=== PATIENT | female | born 1955 | race Caucasian/White ===

== ENCOUNTER → 2016-10-22 | Outpatient (CLI) | payer MEDICARE ==
[~2016-10-22] MED LIST: HYDR-3516 PO; HYDR-3580 PO; OMEP40CA2 PO; OXYC1TAB63 PO; ROPI0.5T PO; TRAZ100T4 PO; WARF-18 PO
[2016-10-22 15:03] LABS: AUTOMATED NEUTROPHIL # 4.4 TH/MM3 (1.8-7.7); BASOPHIL % 0.7 % (0.0-2.0); EOSINOPHIL # 0.3 TH/MM3 (0-0.4); EOSINOPHIL % 4.3 % (0.0-4.0); HEMATOCRIT 42.5 % (35.0-46.0); HEMO FLAGS DIFF FINAL; LYMPH % 22.7 % (9.0-44.0); LYMPHOCYTE # 1.6 TH/MM3 (1.0-4.8); MEAN CELL VOLUME 89.6 FL (80.0-100.0); MEAN CORPUSCULAR HEMOGLOBIN 29.4 PG (27.0-34.0); MEAN CORPUSCULAR HGB CONC 32.8 % (32.0-36.0); NEUT % 62.3 % (16.0-70.0); PLATELET COUNT 330 TH/MM3 (150-450); RED BLOOD COUNT 4.74 MIL/MM3 (4.00-5.30); RED CELL DISTRIBUTION WIDTH 15.4 % (11.6-17.2)
[2016-10-22 15:11] LABS: BLOOD, URINE NEG (NEG); COMMENT (UR) CULT NOT INDICATED; GLUCOSE,URINE NEG (NEG); KETONE, URINE NEG (NEG); NITRITE,URINE NEG (NEG); PH, URINE 6.5 (5.0-8.5); SQUAMOUS EPITHELIAL CELL URINE <1 /hpf (0-5); URINE COLOR LIGHT-YELLOW (YELLW/STRAW)
[2016-10-22 15:28] LABS: APTT (PATIENT) 32.2 SEC (24.3-30.1); INTERNATIONAL NORMALIZED RATIO 1.6 RATIO; PROTHROMBIN TIME - PATIENT 18.1 SEC (9.8-11.6)
[2016-10-22 15:37] LABS: ALT (GPT) 21 U/L (10-53); ANION GAP 5 MEQ/L (5-15); AST (GOT) 16 U/L (15-37); BICARBONATE 32.5 MEQ/L (21.0-32.0); BLOOD UREA NITROGEN 8 MG/DL (7-18); CHLORIDE 103 MEQ/L (98-107); GLOMERULAR FILTRATION RATE 55 ML/MIN (>89); GLUCOSE,FASTING 116 MG/DL (74-99); POTASSIUM 3.6 MEQ/L (3.5-5.1); SODIUM (NA) 140 MEQ/L (136-145)
[2016-10-22 15:39] LABS: ALKALINE PHOSPHATASE 128 U/L (45-117); TOTAL BILIRUBIN ADULT 0.5 MG/DL (0.2-1.0)
== END ==
LOC: CLAB 14:03
PROVIDERS: ATTEND Family Medicine
DX: Z01.89 Encounter for other specified special examinations (principal); I63.9 Cerebral infarction, unspecified; Z79.01 Long term (current) use of anticoagulants
CPT/HCPCS: 36415; 80053; 81001; 85025; 85610; 85730; 86850; 86900; 86901

== ENCOUNTER 2016-11-04 13:38 | Inpatient (IN) | payer MEDICARE ==
[~2016-11-04] VITALS: Ht 162.6 cm; Wt 84.6 kg
[2016-11-20] MEDS ORDERED: WARF-18 PO (11:40)
[2016-11-20] MEDS ORDERED: OMEP40CA2 PO (11:40)
[2016-11-20] MEDS ORDERED: TRAZ100T4 PO (11:40)
[2016-11-20] MEDS ORDERED: HYDR-3580 PO (11:40)
[2016-11-20] MEDS ORDERED: ROPI0.5T PO (11:40)
[2016-11-20 11:44] VITALS: BP 119/81; PULSE 66; RESP 18; TEMP 98.2; O2SAT 98
[2016-11-20] MEDS ORDERED: LACTATED RINGER'S 1000 ML IV SCH (11:45)
[2016-11-20] MEDS ORDERED: SODIUM CHLORID 0.9% 500 ML IV SCH (11:45)
[2016-11-20] MEDS ORDERED: METOPROLOL TARTRATE 25 MG TAB PO PRN (11:45)
[2016-11-20] MEDS ORDERED: INSULIN HUMAN REGULAR 1,000 UNITS/10 ML VIAL SQ PRN (11:45)
[2016-11-20] MEDS ORDERED: NEOSTIGMINE 3 MG/3 ML SYR IV ONE (12:00)
[2016-11-20] MEDS ORDERED: SODIUM BICARBONATE 8.4% INJ 50 MEQ/50 ML SYR IV ONE (12:00)
[2016-11-20] MEDS ORDERED: ONDANSETRON HCL 4 MG/2 ML VIAL IV PUSH ONE (12:00)
[2016-11-20] MEDS ORDERED: PROPOFOL 200 MG/20 ML AMP IV ONE (12:00)
[2016-11-20] MEDS ORDERED: SODIUM CHLORID 0.9% 500 ML INJ 500 ML IV ONE (12:00)
[2016-11-20] MEDS ORDERED: NORMOSOL R INJ 1,000 ML IV ONE (12:00)
[2016-11-20] MEDS ORDERED: PHENYLEPH/NS 1000 MCG/10 ML SYR IV ONE (12:00)
[2016-11-20] MEDS ORDERED: ePHEDrine/NS 25 MG/5 ML SYR IV ONE (12:00)
[2016-11-20] MEDS ORDERED: ACETAMINOPHEN 1000 MG/100 ML VIAL IV ONE ×2 (12:00→13:57)
[2016-11-20] MEDS ORDERED: LACTATED RINGER'S 1000 ML INJ 4,000 ML IV ONE (12:00)
[2016-11-20 12:04] LABS: INTERNATIONAL NORMALIZED RATIO 0.9 RATIO; PROTHROMBIN TIME - PATIENT 10.3 SEC (9.8-11.6)
[2016-11-20] MEDS ORDERED: ceFAZolin 2 GM PREMIX 50 ML ONE (12:14)
[2016-11-20] MEDS: POVIDONE IODINE 7.5% SCRUB 118 ML BOTTLE TOP SCH (12:30)
[2016-11-20] MEDS: ceFAZolin 2 GM PREMIX 50 ML IV SCH ×2 (12:55→13:00)
[2016-11-20] MEDS ORDERED: GENTAMICIN SULFATE 80 MG/2 ML VIAL ONE (13:13)
[2016-11-20] MEDS ORDERED: FAMOTIDINE 20 MG/2 ML VIAL ONE (13:57)
[2016-11-20] MEDS ORDERED: MIDAZOLAM HCL 2 MG/2 ML VIAL ONE ×2 (13:57→19:17)
[2016-11-20] MEDS ORDERED: THROMBIN (TOPICAL) 20,000 UNIT SPRAY KIT ONE (16:14)
[2016-11-20] MEDS ORDERED: GELFOAM SIZE 100 ONE (16:14)
[2016-11-20] MEDS ORDERED: VASOPRESSIN INJ 20 UNITS/ML VIAL ONE (16:41)
[2016-11-20] MEDS ORDERED: GELFOAM SIZE 100 TOP ONE (16:45)
[2016-11-20 17:35] LABS: BLOOD GAS BASE EXCESS -8.5 mmol/L (-2-2); BLOOD GAS CARBOXYHEMOGLOBIN 1.7 % (0-4); BLOOD GAS HCO3 17 mmol/L (22-26); BLOOD GAS METHEMOGLOBIN 0.8 % (0-2); BLOOD GAS O2 HGB SATURATION 98 % (90-100); BLOOD GAS OXYGEN CONTENT 4.9 Vol % (12.0-20.0); BLOOD GAS PCO2 41 mmHg (38-42); BLOOD GAS PO2 257 mmHg (61-120); TEMP CORR TO 98.6
[2016-11-20 17:36] LABS: CRITICAL VALUE YES; FIO2 53 %; OXYGEN DEVICE OPERATING ROOM; STAT YES
[2016-11-20 18:27] LABS: BLOOD GAS BASE EXCESS -9.2 mmol/L (-2-2); BLOOD GAS CARBOXYHEMOGLOBIN 1.2 % (0-4); BLOOD GAS HCO3 17 mmol/L (22-26); BLOOD GAS METHEMOGLOBIN 0.9 % (0-2); BLOOD GAS O2 HGB SATURATION 97 % (90-100); BLOOD GAS OXYGEN CONTENT 15.1 Vol % (12.0-20.0); BLOOD GAS PCO2 38 mmHg (38-42); BLOOD GAS PO2 225 mmHg (61-120); BLOOD GAS TOTAL HGB 10.6 G/DL (12.0-16.0); TEMP CORR TO 98.6
[2016-11-20 18:28] LABS: CRITICAL VALUE YES; FIO2 0 %; OXYGEN DEVICE OR
[2016-11-20 18:29] LABS: STAT YES
[2016-11-20] MEDS ORDERED: NOREPINEPHRINE 4 MG/4 ML AMP ONE ×2 (18:41→22:39)
[2016-11-20 18:45] LABS: AUTOMATED NEUTROPHIL # 6.9 TH/MM3 (1.8-7.7); BASOPHIL % 0.3 % (0.0-2.0); EOSINOPHIL # 0.1 TH/MM3 (0-0.4); EOSINOPHIL % 1.1 % (0.0-4.0); LYMPH % 13.6 % (9.0-44.0); LYMPHOCYTE # 1.3 TH/MM3 (1.0-4.8); MEAN CELL VOLUME 88.5 FL (80.0-100.0); MEAN CORPUSCULAR HEMOGLOBIN 29.5 PG (27.0-34.0); MEAN CORPUSCULAR HGB CONC 33.4 % (32.0-36.0); MONO % 11.3 % (0.0-8.0); NEUT % 73.7 % (16.0-70.0); PLATELET COUNT 65 TH/MM3 (150-450); RED BLOOD COUNT 3.84 MIL/MM3 (4.00-5.30); RED CELL DISTRIBUTION WIDTH 13.7 % (11.6-17.2); WHITE BLOOD COUNT 9.3 TH/MM3 (4.0-11.0)
[2016-11-20] MEDS ORDERED: FUROSEMIDE 20 MG/2 ML VIAL ONE (18:46)
[2016-11-20 18:48] VITALS: O2SAT 100
[2016-11-20 18:52] LABS: HEMO FLAGS AUTO DIFF
[2016-11-20] MEDS ORDERED: DO NOT ADM ANY ANTICOAGULANT DRUGS XX PRN (18:55)
[2016-11-20 18:58] LABS: BICARBONATE 20.2 MEQ/L (21.0-32.0); POTASSIUM 4.7 MEQ/L (3.5-5.1)
[2016-11-20] MEDS ORDERED: PROMETHAZINE HCL 25 MG TAB PO PRN (19:00)
[2016-11-20] MEDS ORDERED: SODIUM CHLORIDE 0.9% FLUSH 5 ML FLUSH IVF PRN (19:00)
[2016-11-20] MEDS ORDERED: Post-op Orders (for Pharmacy) MISC XX ONE (19:00)
[2016-11-20] MEDS ORDERED: PROPOFOL 1000 MG/100 ML INJ 100 ML ONE (19:08)
[2016-11-20 19:10] LABS: CALCIUM-PROTEIN CORRECTED 9.2 MG/DL (8.5-10.1)
[2016-11-20 19:14] LABS: APTT (PATIENT) 80.8 SEC (24.3-30.1); INTERNATIONAL NORMALIZED RATIO 1.9 RATIO; PROTHROMBIN TIME - PATIENT 21.8 SEC (9.8-11.6)
[2016-11-20] MEDS ORDERED: fentaNYL CITRATE 250 MCG/5 ML AMP ONE (19:17)
--- NOTE | 2016-11-20 19:28 | RADRPT ---
EXAM DATE/TIME: 11/20/2016 18:16 [facility] COMPARISON: No previous studies available for comparison. INDICATIONS : ORIF. MEDICAL HISTORY : None. SURGICAL HISTORY : None. ENCOUNTER: Initial ACUITY: 1 day PAIN SCORE: Non-responsive. LOCATION: Right femur. FINDINGS: Limited images have been obtained. The patient has a hip prosthesis in place. There is a fairly long femoral stem component. Cerclage wires are seen at the proximal femur. The patient also has a plat e along the lateral mid and distal aspect of the femur secured by multiple screws. This successfully reduces the midfemoral shaft fracture. There is a prosthetic component identified at the distal femu r. CONCLUSION: Surgical hardware as described above. This all appears well placed. Nigel Goodman MD on November 20, 2016 at 18:21 Board Certified Radiologist. This report was verified electronically.
[2016-11-20] MEDS ORDERED: EPINEPHrine HCL (1:10,000) 1 MG/10 ML SYRINGE ONE ×2 (19:40)
--- NOTE | 2016-11-20 19:41 | RADRPT ---
EXAM DATE/TIME: 11/20/2016 18:48 [facility] COMPARISON: No previous studies available for comparison. INDICATIONS : Central line placement and ET tube placement. MEDICAL HISTORY : None. SURGICAL HISTORY: Post hip replacement. ENCOUNTER: Initial ACUITY: 1 day PAIN SCORE: Non-responsive. LOCATION: Bilateral chest FINDINGS: The patient is intubated with the tip of the ET tube 3 cm from the cyrus. There is a right internal jugular central line in place with the tip overlying the SVC. The heart size is normal. There is in creased density at the left base. There is at least a mild to moderate left pleural effusion. The r ight lung is clear. CONCLUSION: Left lower lobe consolidation or atelectasis with an accompanying mild to moderate le ft pleural effusion. Nigel Goodman MD on November 20, 2016 at 19:31 Board Certified Radiologist. This report was verified electronically.
[2016-11-20] MEDS ORDERED: EPINEPHrine 2 MG/D5W 250 ML IV SCH ×2 (19:45)
[2016-11-20 19:49] LABS: CRENATED RBCS 1+ (NORMAL); PLATELET ESTIMATE SMEAR LOW (NORMAL); PLATELET MORPHOLOGY NORMAL (NORMAL); TEARDROP RBCS 1+ (NORMAL)
[2016-11-20 19:50] LABS: SCAN/DIFF AUTO DIFF CONFIRMED
[2016-11-20] MEDS ORDERED: MIDAZOLAM HCL 5 MG/5 ML VIAL ONE (20:29)
[2016-11-20 20:32] LABS: BLOOD GAS BASE EXCESS -9.4 mmol/L (-2-2); BLOOD GAS CARBOXYHEMOGLOBIN 1.3 % (0-4); BLOOD GAS HCO3 15 mmol/L (22-26); BLOOD GAS METHEMOGLOBIN 0.8 % (0-2); BLOOD GAS O2 HGB SATURATION 98 % (90-100); BLOOD GAS OXYGEN CONTENT 11.5 Vol % (12.0-20.0); BLOOD GAS PCO2 29 mmHg (38-42); BLOOD GAS PO2 246 mmHg (61-120); BLOOD GAS TOTAL HGB 7.9 G/DL (12.0-16.0); TEMP CORR TO 98.6
[2016-11-20 20:33] LABS: CRITICAL VALUE YES; DRAW SITE ART LINE; FIO2 50 %; OXYGEN DEVICE VENTILATOR; STAT NO; VENT SETTINGS 470/14/PEEP 5/
[2016-11-20 20:59] LABS: HEMATOCRIT 20.6 % (35.0-46.0); REVIEW FLAG FINAL
[2016-11-20] MEDS ORDERED: SODIUM CHLOR 0.9% 250 ML INJ 250 ML IV ONE ×4 (21:00→22:30)
[2016-11-20] MEDS ORDERED: SODIUM CHLORIDE 0.9% FLUSH 5 ML FLUSH IVF SCH (21:00)
[2016-11-20] MEDS ORDERED: SODIUM CHLORIDE 0.9% FLUSH 5 ML FLUSH IV FLUSH PRN (21:15)
[2016-11-20] MEDS ORDERED: TRANEXAMIC ACID INJ 1,000 MG in SODIUM CHLORIDE 0.9% INJ 100 ML IV ONE (21:15)
[2016-11-20] MEDS ORDERED: ONDANSETRON HCL 4 MG/2 ML VIAL IV PRN (21:15)
[2016-11-20] MEDS ORDERED: ACETAMINOPHEN 325 MG TAB PO PRN (21:15)
[2016-11-20] MEDS ORDERED: CHLORHEXIDINE GLUCONATE 2 % 1 PACK (2 CLOTHS) TOP PRN (21:15)
[2016-11-20] MEDS ORDERED: RESP: IPRATROPIUM 0.5 MG/2.5 ML NEB INH PRN (21:15)
[2016-11-20] MEDS ORDERED: CALCIUM CHLORIDE INJ 2 GM in DEXTROSE 5% IN WATER 100ML INJ 100 ML IV ONE ×2 (21:15)
[2016-11-20] MEDS ORDERED: MISCELLANEOUS NURSING INFORMATION XX SCH (21:15)
--- NOTE | 2016-11-20 21:20 | PD.CONS ---
[facility] Service Critical Care Medicine Consult Requested By Dr. Barreto Reason for Consult Initial consult vent management, however ultimately for resuscitation for hemorrhagic shock and coagulopathy Primary Care Physician Elin Wright M.D. History of Present Illness 61 yo WF with PMH of stroke at age 26 for which she is chronically on anticoagulation with warfarin, GERD, who presented to same day surgery for right total hip arthroplasty. Intraoperatively, the R femur fractured resulting in acute blood loss. Underwent ORIF femur and R hip arthroplasty. DIscussed with Dr. Dawn with anesthesia who reports 4-5 L of EBL and states patient was hemodynamically unstable intraoperatively. Intraoperatively, Hgb had dropped to 3. She received 5.1 L of crystalloid, 4 unit of of PRBC. Two units of FFP were ordered in PACU where she is on Epinephrine 3 mcg/min and Levophed 24 mcg/min. Critical care consult was placed for ongoing resuscitation. Patient remains intubated with 7.0 ETT. Records indicate she was intubated with a 3.0 Mac with routine airway. She is hypothermic and coagulopathic with fibrinogen 54, PTT 80, platelet 65. Hgb 6.9. Review of Systems ROS Limitations: Clinical Condition, Intubated Past Family Social History Allergies: Coded Allergies: Codeine (Verified Allergy, Severe, NAUSEA AND VOMITTING, 11/20/16) Past Medical History She reportedly had a stroke at age 26 resulting in residual right sided weakness GERD TIA in 2003 Restless leg syndrome Insomnia She has no known history of coronary disease. She had a preoperative stress test by Dr. Cleary that was negative per her . Past Surgical History Right knee arthroplasty 2006 Left NATALYA 2007 Reported Medications Warfarin 2.5 mg by mouth daily (discontinued 6 days preoperatively) Trazodone 100 mg by mouth daily at bedtime Ropinorole 0.5 mg by mouth daily at bedtime Hydrocodone 7.5/325 one tab by mouth 6 hours when necessary pain Omeprazole 40 mg by mouth daily Family History Patient has 2 sisters with COPD His denies family history of coronary artery disease Social History She has a prior history of smoking and quit 2 years ago. Her is uncertain when she started but she previously smoked a pack of cigarettes per day She drinks alcohol on rare occasion No history of illicit drug use She's been for 25 years. Her is Jeramie Calvert and he states he first to be reached at [phone] Physical Exam Vital Signs Vital Signs Date Time Temp Pulse Resp B/P Pulse Ox O2 Delivery O2 Flow Rate FiO2 11/20/16 18:48 100 50 11/20/16 11:44 98.2 66 18 119/81 98 Physical Exam Unable to obtain temp. Pulse 110, sinus tach on the monitor. BP 115/67 sats 100 % on mechanical ventilation GENERAL: Well-nourished, well-developed patient who is orotracheally intubated. Will open eyes and moves BUE to command. SKIN: cool peripherally.weakly palpable radial and pedal pulses bilaterally. HEAD: Atraumatic. Normocephalic. EYES: Pupils equal and round 4 mm reactive. ENT: No nasal bleeding or discharge. Mucous membranes pink and moist. NECK: Trachea midline. No JVD. CARDIOVASCULAR: Regular rate and rhythm, sinus tach on the monitor.. No murmurs rubs or gallops. RESPIRATORY: On SIMV tidal volume 470/rate 14/pressure support 10/P5/FiO2 50%. She is breathing 26 times a minute. Lungs are clear to auscultation bilaterally. No wheezes Rales or rhonchi. GASTROINTESTINAL: Abdomen soft, non-tender, nondistended. Sounds are present Amos catheter in place with nearly clear urine output MUSCULOSKELETAL: Extremities without clubbing, cyanosis. There is dressing in place overlying right hip with blood staining and blood staining of absorbant pads under right hip. DP pulses are palpable bilaterally NEUROLOGICAL: She opens eyes to voice. Follows commands with squeeze BUE. Laboratory Laboratory Tests Test 11/20/16 11/20/16 11/20/16 11/20/16 11:45 12:12 17:25 17:42 Prothrombin Time 10.3 Prothromb Time International 0.9 Ratio Blood Type O POSITIVE O POSITIVE Antibody Screen NEGATIVE Crossmatch Leukocyte-Reduced Leukocyte-Reduced Leukocyte-Reduced Red Blood Red Blood Red Blood Cells Cells Cells Blood Bank Comment Blood Gas Puncture Site DRAWN IN OR Blood Gas Patient Temperature 98.6 Blood Gas HCO3 17 Blood Gas Base Excess -8.5 Blood Gas Oxygen Saturation 98 Arterial Blood pH 7.25 Arterial Blood Partial 41 Pressure CO2 Arterial Blood Partial 257 Pressure O2 Arterial Blood Oxygen Content 4.9 Arterial Blood 1.7 Carboxyhemoglobin Arterial Blood Methemoglobin 0.8 Blood Gas Hemoglobin 3.0 Oxygen Delivery Device OPERATING ROOM Blood Gas Inspired Oxygen 53 Test 11/20/16 11/20/16 11/20/16 11/20/16 18:05 18:18 19:43 20:22 White Blood Count 9.3 Red Blood Count 3.84 Hemoglobin 11.3 Hematocrit 34.0 Mean Corpuscular Volume 88.5 Mean Corpuscular Hemoglobin 29.5 Mean Corpuscular Hemoglobin 33.4 Concent Red Cell Distribution Width 13.7 Platelet Count 65 Mean Platelet Volume 8.6 Neutrophils (%) (Auto) 73.7 Lymphocytes (%) (Auto) 13.6 Monocytes (%) (Auto) 11.3 Eosinophils (%) (Auto) 1.1 Basophils (%) (Auto) 0.3 Neutrophils # (Auto) 6.9 Lymphocytes # (Auto) 1.3 Monocytes # (Auto) 1.1 Eosinophils # (Auto) 0.1 Basophils # (Auto) 0.0 CBC Comment AUTO DIFF Differential Comment AUTO DIFF CONFIRMED Platelet Estimate LOW Platelet Morphology Comment NORMAL Tear Drop Cells 1+ Crenated Cell 1+ Prothrombin Time 21.8 Prothromb Time International 1.9 Ratio Activated Partial 80.8 Thromboplast Time Fibrinogen 54 D-Dimer Quantitative (PE/DVT) 11.98 Sodium Level 141 Potassium Level 4.7 Chloride Level 104 Carbon Dioxide Level 20.2 Anion Gap 17 Blood Urea Nitrogen 7 Creatinine 0.92 Estimat Glomerular Filtration 62 Rate Random Glucose 310 Calcium Level 6.1 Protein Corrected Calcium 9.2 Total Protein 1.8 Blood Gas Puncture Site DRAWN IN OR ART LINE Blood Gas Patient Temperature 98.6 98.6 Blood Gas HCO3 17 15 Blood Gas Base Excess -9.2 -9.4 Blood Gas Oxygen Saturation 97 98 Arterial Blood pH 7.26 7.34 Arterial Blood Partial 38 29 Pressure CO2 Arterial Blood Partial 225 246 Pressure O2 Arterial Blood Oxygen Content 15.1 11.5 Arterial Blood 1.2 1.3 Carboxyhemoglobin Arterial Blood Methemoglobin 0.9 0.8 Blood Gas Hemoglobin 10.6 7.9 Oxygen Delivery Device OR VENTILATOR Blood Gas Inspired Oxygen 0 50 Blood Bank Comment Blood Gas Ventilator Setting 470/14/PEEP 5/ Result Diagram: 11/20/16180411/20/161804 Assessment and Plan Assessment and Plan NEURO: History of stroke with residual R sided weakness Insomnia Restless leg syndrome Fentanyl for analgosedation Target RASS -2 Neurovascular checks RLE q 1 hour. Hold trazodone 100 mg by mouth daily. Hold ropinirole 0.5 mg by mouth daily RESP: Acute respiratory failure History of tobacco abuse, no longer active smoker. Ventilator bundle Adjust to ACV TV 470/rate 24/P5/FiO60% to help compensate for metabolic acidemia CV: Hemorrhagic shock Right radial art line in place. Hemodynamic monitoring via Ty Trac is consistent with hypovolemic/hemorrhagic shock with CI 2.7 SVV 43 SVI 23. Levophed to maintain mean arterial pressure greater than 65. We'll attempt to wean off epinephrine as tolerated; she is responding to blood product resuscitation. Received 5 L crystalloid in OR and 2 L in PACU. Correct coagulopathy and acute blood loss anemia with product resuscitation as per below. Serial lactic acid, monitor UOP, monitor base deficit as markers of resuscitation. GI: GERD OGT place LIWS. NPO FEN/RENAL: Hypocalcemia Monitor intake and output hourly. Monitor electrolytes and replace as indicated. Will need aggressive calcium replacement as resuscitation of blood products is ongoing. ID: Monitor for evidence of infection Perioperative cefazolin. HEME: Acute DIC secondary to acute blood loss and consumption. Acute blood loss anemia Chronic anticoagulation with Coumadin (discontinued 6 days preoperatively) Serial monitoring of CBC, coags, fibrinogen. Received 4 units PRBC in OR. 2 units FFP in PACU Stat transfusion 3 units PRBC, 2 units cryo, 2 units platelet and additional 2 units FFP (for total of 4 units) for hemostatic resuscitation. TXA 1 gram x1 Calcium chloride 2 gram IV via CVL. External rewarming to address hypothermia. Followup hgb was 6.1 at 01:30 but coagulopathy corrected, bleeding clinically slowed, patient rewarmed, off pressors. Transfused additional 3 units PRBC and gave Lasix 20 mg IV. Good UOP. Compartments are not tense on reexamination, pedal pulses palpable. ENDO: Acute hyperglycemia Monitor bedside glucose and initiate insulin drip algorithm #1 ORTHO: R hip arthroplasty and ORIF R femur 11/20/16 Dr. Barreto will follow. Neurovascular check q 1 hour. PROPH: No further pharmacologic DVT prophylaxis at this time due to profound coagulopathy and hemorrhagic shock. Protonix 40 mg IV daily for stress ulcer prophylaxis ACCESS: Right IJ central venous line placed in OR 11/20 #1, right radial art line placed in OR 11/20 #1 Discussed with [employer]TIVE PH[employer] EDUCATION TE[employer]ER. Dr. Mary Lou updated per RN. Discussed with Dr. Dawn. CCT 90 minutes exclusive of separately billable procedures. Josselin Priest MD Nov 20, 2016 21:20
[2016-11-20] MEDS ORDERED: SODIUM PHOSPHATE INJ 30 MMOL in SODIUM CHLOR 0.9% 250 ML INJ 240 ML IV PRN (21:30)
[2016-11-20] MEDS ORDERED: POTASSIUM CHLOR 20 MEQ PREMIX 100 ML IV PRN ×2 (21:30)
[2016-11-20] MEDS ORDERED: MAGNESIUM SULFATE INJ 4 GM in SODIUM CHLORIDE 0.9% INJ 92 ML IV PRN (21:30)
[2016-11-20] MEDS ORDERED: POTASSIUM PHOSPHATE INJ 30 MMOL in SODIUM CHLOR 0.9% 250 ML INJ 250 ML IV PRN (21:30)
[2016-11-20] MEDS ORDERED: POTASSIUM CHLOR 40 MEQ PREMIX 100 ML IV PRN ×2 (21:30)
[2016-11-20] MEDS ORDERED: POTASSIUM CL 40 MEQ/30 ML LIQ UDC PO/TUBE PRN ×2 (21:30)
[2016-11-20] MEDS ORDERED: POTASSIUM PHOSPHATE MONOBASIC 500 MG TAB PO PRN (21:30)
[2016-11-20] MEDS ORDERED: MAGNESIUM OXIDE 400 MG TAB PO PRN (21:30)
[2016-11-20] MEDS ORDERED: MAGNESIUM SULFATE INJ 2 GM in SODIUM CHLORIDE 0.9% INJ 96 ML IV PRN (21:30)
[2016-11-20] MEDS ORDERED: POTASSIUM PHOSPHATE MONOBASIC 500 MG TAB PO/TUBE PRN (21:30)
[2016-11-20] MEDS: fentaNYL DRIP 250 ML IV SCH (22:00)
[2016-11-20 22:03] LABS: MAGNESIUM 1.4 MG/DL (1.5-2.5)
[2016-11-20 22:05] LABS: BLOOD GAS BASE EXCESS -10.5 mmol/L (-2-2); BLOOD GAS CARBOXYHEMOGLOBIN 1.5 % (0-4); BLOOD GAS HCO3 15 mmol/L (22-26); BLOOD GAS METHEMOGLOBIN 1.3 % (0-2); BLOOD GAS O2 HGB SATURATION 97 % (90-100); BLOOD GAS OXYGEN CONTENT 8.4 Vol % (12.0-20.0); BLOOD GAS PCO2 31 mmHg (38-42); BLOOD GAS PO2 301 mmHg (61-120); BLOOD GAS TOTAL HGB 5.6 G/DL (12.0-16.0); CRITICAL VALUE YES; DRAW SITE ART LINE; FIO2 60 %; OXYGEN DEVICE VENTILATOR; TEMP CORR TO 98.6; VENT SETTINGS AC24/475/5PEEP
[2016-11-20 22:06] LABS: STAT NO
[2016-11-20 22:30] VITALS: O2SAT 100
[2016-11-20 23:15] VITALS: O2SAT 100
[2016-11-20] MEDS: MAGNESIUM SULFATE 1 GM PREMIX 100 ML IV SCH (23:45)
[2016-11-21] VITALS (15 sets, daily range): BP systolic 104–150; BP diastolic 57–93; PULSE 85–109; RESP 10–24; TEMP 97.2–98; O2SAT 96–100
[2016-11-21] MEDS ORDERED: MISC INFORMATION XX ONE
[2016-11-21] MEDS ORDERED: INSULIN REGULAR (IV INFUSION) 100 UNITS in SODIUM CHLORIDE 0.9% INJ 99 ML IV SCH ×2
[2016-11-21] MEDS: MAGNESIUM SULFATE 1 GM PREMIX 100 ML IV SCH (00:07)
[2016-11-21 00:40] LABS: BLOOD GAS BASE EXCESS -7.8 mmol/L (-2-2); BLOOD GAS HCO3 18 mmol/L (22-26); BLOOD GAS O2 HGB SATURATION 98 % (90-100); BLOOD GAS OXYGEN CONTENT 12.1 Vol % (12.0-20.0); BLOOD GAS PCO2 37 mmHg (38-42); BLOOD GAS PO2 259 mmHg (61-120); BLOOD GAS TOTAL HGB 8.3 G/DL (12.0-16.0); CRITICAL VALUE NO; OXYGEN DEVICE VENTILATOR; TEMP CORR TO 98.6; VENT SETTINGS AC470/24/PEEP5
[2016-11-21 00:41] LABS: DRAW SITE ART LINE; FIO2 60 %; STAT NO
[2016-11-21 01:59] LABS: MEAN CELL VOLUME 83.1 FL (80.0-100.0); MEAN CORPUSCULAR HEMOGLOBIN 28.9 PG (27.0-34.0); MEAN CORPUSCULAR HGB CONC 34.7 % (32.0-36.0); PLATELET COUNT 116 TH/MM3 (150-450); RED BLOOD COUNT 2.11 MIL/MM3 (4.00-5.30); WHITE BLOOD COUNT 6.3 TH/MM3 (4.0-11.0)
[2016-11-21 02:00] LABS: REVIEW FLAG AUTO DIFF
[2016-11-21 02:05] LABS: HEMATOCRIT 17.5 % (35.0-46.0)
[2016-11-21 02:13] LABS: INTERNATIONAL NORMALIZED RATIO 1.1 RATIO
[2016-11-21 02:28] LABS: BICARBONATE 22.8 MEQ/L (21.0-32.0); MAGNESIUM 1.8 MG/DL (1.5-2.5); POTASSIUM 3.5 MEQ/L (3.5-5.1)
[2016-11-21] MEDS ORDERED: SODIUM CHLOR 0.9% 250 ML INJ 250 ML IV ONE (02:30)
[2016-11-21] MEDS ORDERED: DEXTROSE 50% IN WATER 50 ML VIAL(D50) IV PUSH PRN ×2 (02:30)
[2016-11-21] MEDS ORDERED: GLUCAGON 1 MG/ML VIAL OTHER PRN (02:30)
[2016-11-21] MEDS ORDERED: POTASSIUM CHLOR 20 MEQ PREMIX 100 ML IV ONE (02:45)
[2016-11-21] MEDS ORDERED: CALCIUM CHLORIDE INJ 1 GM in SODIUM CHLORIDE 0.9% INJ 100 ML IV ONE (02:45)
[2016-11-21] MEDS ORDERED: MAGNESIUM SULFATE 1 GM PREMIX 100 ML IV ONE (02:45)
[2016-11-21] MEDS: INSULIN ASPART SUPPLEMENTAL SCALE SQ SCH ×4 (02:49→14:13)
[2016-11-21] MEDS ORDERED: FUROSEMIDE 20 MG/2 ML VIAL IV PUSH ONE (03:00)
[2016-11-21] MEDS: CHLORHEXIDINE GLUCONATE 2 % 1 PACK (2 CLOTHS) TOP SCH (03:33)
[2016-11-21] MEDS: fentaNYL DRIP 250 ML IV SCH ×2 (06:31→07:26)
[2016-11-21 08:01] LABS: HEMATOCRIT 32.4 % (35.0-46.0); MEAN CELL VOLUME 84.3 FL (80.0-100.0); MEAN CORPUSCULAR HEMOGLOBIN 29.1 PG (27.0-34.0); MEAN CORPUSCULAR HGB CONC 34.5 % (32.0-36.0); PLATELET COUNT 90 TH/MM3 (150-450); RED BLOOD COUNT 3.84 MIL/MM3 (4.00-5.30); WHITE BLOOD COUNT 6.5 TH/MM3 (4.0-11.0)
[2016-11-21 08:07] LABS: APTT (PATIENT) 26.5 SEC (24.3-30.1); INTERNATIONAL NORMALIZED RATIO 1.1 RATIO; PROTHROMBIN TIME - PATIENT 11.7 SEC (9.8-11.6)
[2016-11-21] MEDS: SODIUM CHLORIDE 0.9% FLUSH 5 ML FLUSH IV FLUSH SCH ×2 (09:15→22:08)
[2016-11-21] MEDS: PANTOPRAZOLE SODIUM 40 MG VIAL IV SCH (09:15)
[2016-11-21] MEDS ORDERED: RESP: ALBUTEROL 2.5 MG/3 ML NEB (PRN) NEB (09:15)
[2016-11-21] MEDS: CHLORHEXIDINE 0.12% (ORAL KIT) 15 ML CUP MT SCH ×2 (09:16→20:00)
--- NOTE | 2016-11-21 09:40 | PD.CONS ---
HPI Service [facility] Consult Requested By Dr. Barreto Reason for Consult Medical management Primary Care Physician Elin Wright M.D. Diagnoses: History of Present Illness This is 61 yo WF with PMH of stroke at age 26 for which she is chronically on anticoagulation with warfarin, GERD, atrial fibrillation, osteoarthritis. Patient presented to same day surgery for right total hip arthroplasty. Intraoperative, there was fracture of R femur resulting in requirement of ORIF of femur. Per anesthesia report, there was approximately 4-5 L of estimated blood loss, patient was hemodynamically unstable and there was significant drop in Hemglobin to 3. She has received multiple blood products including PRBC and FFP. She didn't require epinephrine and levo fed which have now been turned off. Patient is intubated, hypothermic. Lactic acidosis is present. Critical care is managing patient as well. Patient remains intubated, no longer on pressor support. Possible attempt for extubation today. Hospitalist services are requested for medical management. 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 Sargent. (Rosa Marie) Review of Systems ROS Limitations: Intubated (Rosa Marie) Past Family Social History Past Medical History A. fib Stroke at 26, on chronic anticoagulation with Coumadin Recent ischemic evaluation preop per Dr. Sargent GERD OA Past Surgical History Left hip surgery Right knee surgery Reported Medications Reported Meds & Active Scripts Active Reported Trazodone (Trazodone HCl) 100 Mg Tab 100 Mg PO HS Hydrocodone-Acetaminophen 7.5-325 mg Tab 1 Tab PO Q6H PRN Ropinirole 0.5 Mg Tab 0.5 Mg PO ONCE Omeprazole 40 Mg Cap 40 Mg PO DAILY Warfarin 2.5 Mg Tab 2.5 Mg PO DAILY (Rosa Marie) Allergies: Coded Allergies: Codeine (Verified Allergy, Severe, NAUSEA AND VOMITTING, 11/20/16) Active Ordered Medications Inpatient Medications Acetaminophen (Tylenol) 650 mg Q6H PRN PO PAIN 1-10 AND/OR FEVER >101F; Start 11/20/16 at 21:15 Acetaminophen/ Hydrocodone Bitart (Van 5-325 Mg) 1 tab Q4H PRN PO PAIN LESS THAN 5 ON SCALE; Start 11/20/16 at 19:00 Albuterol Sulfate (Albuterol Neb) 2.5 mg Q2HR NEB PRN NEB WHEEZING; Start 11/21 at 09:15; Status UNV Calcium Chloride 1 gm/Sodium Chloride 110 ml @ 110 mls/hr ONCE ONCE IV Last administered on 11/21/16 03:48; Start 11/21/16 at 02:45; Stop 11/21/16 at 03:44 ; Status DC Calcium Chloride/ Dextrose (Calcium Chloride Inj/D5W 100 ml Inj) 120 ml @ 120 mls/hr ONCE ONCE IV ; Start 11/20/16 at 21:15; Stop 11/20/16 at 22:14; Status DC Cefazolin Sodium/ Dextrose (Ancef 2 Gm Premix) 50 ml @ 100 mls/hr CLAIMS ADJUSTER IV Last administered on 11/20/16 12:55; Start 11/20/16 at 12:30; Stop 11/23/16 at 12:29 Cefazolin Sodium/ Sodium Chloride (Ancef Inj/NS Inj) 100 ml @ 200 mls/hr Q6H IV Last administered on 11/21/16 07:26; Start 11/20/16 at 20:00; Stop at 08:29; Status DC Chlorhexidine Gluconate (Chlorhexidine 2% Cloth) 3 pack Taper DAILY@04 TOP ; Start 11/21/16 at 04:00; Stop 11/17/17 at 03:59 Chlorhexidine Gluconate 15 ml 15 ml BID@08,20 MT Last administered on 09:16; Start 11/21/16 at 08:00 Chlorhexidine Gluconate 3 pack 3 pack UNSCH PRN TOP HYGIENIC CARE; Start at 21:15 Dextrose (D50w (Vial) Inj) 25 ml UNSCH PRN IV PUSH HYPOGLYCEMIA-SEE COMMENTS; Start 11/21/16 at 02:30 Epinephrine HCl 2 mg/Dextrose 252 ml @ 0 mls/hr TITRATE IV ; Start 11/20/16 at 19:45 Fentanyl Citrate 250 ml @ 0 mls/hr TITRATE IV Last administered on 11/21/16 07 :26; Start 11/20/16 at 21:30 Furosemide 20 mg 20 mg ONCE ONCE IV PUSH Last administered on 11/21/16 04:06 ; Start 11/21/16 at 03:00; Stop 11/21/16 at 03:01; Status DC Glucagon (Glucagon Inj) 1 mg UNSCH PRN OTHER HYPOGLYCEMIA-SEE COMMENTS; Start 11/21/16 at 02:30 Insulin Aspart 1 1 Q4H SQ Last administered on 11/21/16 07:38; Start 11/21/16 at 02:30 Insulin Human Regular (NovoLIN R INJ) See Protocol Table ... UNSCH X1 PRN SQ SEE PROTOCOL; Start 11/20/16 at 11:45; Stop 11/20/16 at 19:19; Status DC Insulin Human Regular/Sodium Chloride (NovoLIN R (IV INFUSION)/NS Inj) 100 ml @ 0 mls/hr TITRATE IV ; Start 11/21/16 at 00:00; Stop 11/21/16 at 02:32; Status DC Ipratropium [place] (Atrovent Neb) 0.5 mg Q2HR NEB PRN INH WHEEZING; Start at 21:15 IV Flush (NS Flush) 2 ml BID IV FLUSH Last administered on 11/21/16 09:15; Start 11/21/16 at 09:00 IV Flush 2 ml 2 ml BID IVF Last administered on 11/21/16 09:15; Start at 21:00 Lactated Ringer's 1,000 ml @ 30 mls/hr Q24H IV ; Start 11/20/16 at 11:45; Stop 11/20/16 at 19:19; Status DC Magnesium Oxide 800 mg 800 mg UNSCH PRN PO For Magnesium 1.2 - 1.6 mg/dL; Start 11/20/16 at 21:30 Magnesium Sulfate 2 gm/Sodium Chloride 100 ml @ 50 mls/hr UNSCH PRN IV For Magnesium 1.2 - 1.6 mg/dL; Start 11/20/16 at 21:30 Magnesium Sulfate/ Dextrose (Magnesium Sulfate 1 Gm Premix) 100 ml @ 100 mls/ hr ONCE ONCE IV Last administered on 11/21/16 02:49; Start 11/21/16 at 02:45 ; Stop 11/21/16 at 03:44; Status DC Magnesium Sulfate/ Sodium Chloride (Magnesium Sulfate Inj/NS Inj) 100 ml @ 50 mls/hr UNSCH PRN IV For Magnesium 0.9 - 1.1 mg/dL; Start 11/20/16 at 21:30 Metoprolol Tartrate (Lopressor) 25 mg UNSCH X1 PRN PO SEE LABEL COMMENTS; Start 11/20/16 at 11:45; Stop 11/20/16 at 19:19; Status DC Miscellaneous Information 1 Q361D XX ; Start 11/20/16 at 21:15 Miscellaneous Information (Post-op Orders (for Pharmacy)) STAT ONCE XX ; Start 11/20/16 at 19:00; Stop 11/20/16 at 19:19; Status DC Miscellaneous Information 1 1 ONCE ONCE XX ; Start 11/21/16 at 00:00; Stop at 00:19; Status DC Ondansetron HCl (Zofran Inj) 4 mg Q6H PRN IV NAUSEA OR VOMITING; Start at 21:15 Pantoprazole Sodium (Protonix Inj) 40 mg DAILY IV Last administered on t 09:15; Start 11/21/16 at 09:00 Potassium Chloride 40 meq 40 meq UNSCH PRN PO/TUBE For Potassium 3.3 - 3.5 mEq/ L; Start 11/20/16 at 21:30 Potassium Phosphate 2000 mg 2,000 mg UNSCH PRN PO/TUBE SEE LABEL COMMENTS; Start 11/20/16 at 21:30 Potassium Phosphate/Sodium Chloride (Potassium Phosphate Inj/NS 250 ml Inj) 260 ml @ 42 mls/hr UNSCH PRN IV SEE LABEL COMMENTS; Start 11/20/16 at 21:30 Potassium Chloride (KCl 20 Meq Premix Inj) 100 ml @ 50 mls/hr BOLUS ONCE IV ; Start 11/21/16 at 02:45; Stop 11/21/16 at 04:44; Status DC Potassium Chloride (KCl 40 Meq Premix Inj) 100 ml @ 50 mls/hr Q2H PRN IV For Potassium 2.8 - 3.2 mEq/L; Start 11/20/16 at 21:30 Potassium Chloride (KCl 40 Meq/30 ml Liq) 40 meq UNSCH PRN PO/TUBE SEE LABEL COMMENTS; Start 11/20/16 at 21:30 Povidone Iodine 1 applic 1 applic ONCE TOP ; Start 11/20/16 at 12:30; Stop 11/23 at 12:29 Promethazine HCl 25 mg 25 mg Q4H PRN PO NAUSEA OR VOMITING; Start 11/20/16 at 19:00 Sodium Chloride (NS 250 ml Inj) 250 ml @ 15 mls/hr ONCE ONCE IV ; Start at 02:30; Stop 11/21/16 at 19:09 Sodium Chloride (NS 500 ml Inj) 500 ml @ 30 mls/hr [id number] IV ; Start 11/20/16 at 11:45; Stop 11/21/16 at 11:44 Sodium Phosphate/ Sodium Chloride (Sodium Phosphate Inj/NS 250 ml Inj) 250 ml @ 42 mls/hr UNSCH PRN IV For Phosphorus < 2.5 mg/dL; Start 11/20/16 at 21:30 Tranexamic Acid 1000 mg/Sodium Chloride 110 ml @ 200 mls/hr ONCE ONCE IV Last administered on 11/20/16t 22:50; Start 11/20/16 at 21:15; Stop 11/20/16 at 21:47; Status DC Family History Unable to obtain Social History Unable to obtain (Rosa Marie) Physical Exam Vital Signs Vital Signs Date Time Temp Pulse Resp B/P Pulse Ox O2 Delivery O2 Flow Rate FiO2 11/21/16 07:59 99 35 11/21/16 07:45 35 11/21/16 07:00 Mechanical Ventilator 11/21/16 06:00 85 11/21/16 04:00 88 11/21/16 04:00 97.6 88 24 143/80 100 133/81 11/21/16 04:00 45 11/21/16 02:00 93 11/21/16 01:06 100 45 11/21/16 00:00 60 11/21/16 00:00 97.6 109 24 150/84 100 129/93 11/21/16 00:00 108 11/21/16 00:00 Mechanical Ventilator 11/20/16 23:15 100 100 11/20/16 23:00 97.5 115 19 171/88 100 Mechanical Ventilator 60 11/20/16 22:45 112 22 149/95 100 Mechanical Ventilator 60 156/85 11/20/16 22:42 114 23 162/87 100 Mechanical Ventilator 60 11/20/16 22:31 115 16 142/86 100 Mechanical Ventilator 60 157/82 11/20/16 22:30 100 60 11/20/16 22:15 112 23 124/82 100 Mechanical Ventilator 60 133/73 11/20/16 22:00 114 24 111/76 100 Mechanical Ventilator 60 114/66 11/20/16 21:45 113 21 111/70 100 Mechanical Ventilator 60 83/53 11/20/16 21:30 112 23 111/76 100 Mechanical Ventilator 60 67/55 11/20/16 21:15 114 17 94/50 98 Mechanical Ventilator 50 87/56 11/20/16 21:10 96.3 114 21 115/64 100 Mechanical Ventilator 50 11/20/16 21:00 113 22 89/66 90 Mechanical Ventilator 50 78/57 11/20/16 20:45 108 28 105/68 99 Mechanical Ventilator 50 79/55 11/20/16 20:33 108 23 116/63 100 Mechanical Ventilator 50 11/20/16 20:20 106 19 95/56 89 Mechanical Ventilator 50 11/20/16 20:00 103 17 104/65 100 Mechanical Ventilator 50 11/20/16 19:55 102 16 125/75 100 Mechanical Ventilator 50 11/20/16 19:45 50 11/20/16 19:40 104 14 125/90 100 Mechanical Ventilator 50 114/70 11/20/16 19:25 102 13 55/38 97 Mechanical Ventilator 50 11/20/16 19:05 102 17 95/61 100 Mechanical Ventilator 50 11/20/16 18:55 106 18 106/85 100 Mechanical Ventilator 50 11/20/16 18:48 100 50 11/20/16 18:45 99 18 97/69 100 Mechanical Ventilator 50 11/20/16 18:42 50 11/20/16 18:37 118 10 75/38 100 Ambu Bag 11/20/16 11:44 98.2 66 18 119/81 98 Physical Exam GENERAL: Patient mechanically ventilated, does not appear in any distress SKIN: No rashes, ecchymoses or lesions. Cool and dry. HEAD: Atraumatic. Normocephalic. No temporal or scalp tenderness. EYES: Pupils equal round and reactive. No scleral icterus. No injection or drainage. ENT: Nose without bleeding, purulent drainage or septal hematoma. Throat without erythema, tonsillar hypertrophy or exudate. Uvula midline. Airway patent. NECK: Trachea midline. No JVD or lymphadenopathy. Supple, nontender, no meningeal signs. CARDIOVASCULAR: Regular rate and rhythm without murmurs, gallops, or rubs. RESPIRATORY: Clear to auscultation. Breath sounds equal bilaterally. No wheezes , rales, or rhonchi. On mechanical ventilation. GASTROINTESTINAL: Abdomen soft, non-tender, nondistended. No hepato-splenomegaly , or palpable masses. No guarding. MUSCULOSKELETAL: Right leg in canvas splint, dressing to right hip and right thigh, D/I. Pedal pulses 2+ bilaterally. Pretibial edema. NEUROLOGICAL: Mechanical ventilation, unable to assess Laboratory Laboratory Tests Test 11/20/16 11/20/16 11/20/16 11/20/16 11:45 12:12 17:25 17:42 Prothrombin Time 10.3 Prothromb Time International 0.9 Ratio Blood Type O POSITIVE O POSITIVE Antibody Screen NEGATIVE Crossmatch Leukocyte-Reduced Leukocyte-Reduced Leukocyte-Reduced Red Blood Red Blood Red Blood Cells Cells Cells Blood Bank Comment Blood Gas Puncture Site DRAWN IN OR Blood Gas Patient Temperature 98.6 Blood Gas HCO3 17 Blood Gas Base Excess -8.5 Blood Gas Oxygen Saturation 98 Arterial Blood pH 7.25 Arterial Blood Partial 41 Pressure CO2 Arterial Blood Partial 257 Pressure O2 Arterial Blood Oxygen Content 4.9 Arterial Blood 1.7 Carboxyhemoglobin Arterial Blood Methemoglobin 0.8 Blood Gas Hemoglobin 3.0 Oxygen Delivery Device OPERATING ROOM Blood Gas Inspired Oxygen 53 Test 11/20/16 11/20/16 11/20/16 11/20/16 18:05 18:18 19:43 20:22 White Blood Count 9.3 Red Blood Count 3.84 Hemoglobin 11.3 Hematocrit 34.0 Mean Corpuscular Volume 88.5 Mean Corpuscular Hemoglobin 29.5 Mean Corpuscular Hemoglobin 33.4 Concent Red Cell Distribution Width 13.7 Platelet Count 65 Mean Platelet Volume 8.6 Neutrophils (%) (Auto) 73.7 Lymphocytes (%) (Auto) 13.6 Monocytes (%) (Auto) 11.3 Eosinophils (%) (Auto) 1.1 Basophils (%) (Auto) 0.3 Neutrophils # (Auto) 6.9 Lymphocytes # (Auto) 1.3 Monocytes # (Auto) 1.1 Eosinophils # (Auto) 0.1 Basophils # (Auto) 0.0 CBC Comment AUTO DIFF Differential Comment AUTO DIFF CONFIRMED Platelet Estimate LOW Platelet Morphology Comment NORMAL Tear Drop Cells 1+ Crenated Cell 1+ Prothrombin Time 21.8 Prothromb Time International 1.9 Ratio Activated Partial 80.8 Thromboplast Time Fibrinogen 54 D-Dimer Quantitative (PE/DVT) 11.98 Sodium Level 141 Potassium Level 4.7 Chloride Level 104 Carbon Dioxide Level 20.2 Anion Gap 17 Blood Urea Nitrogen 7 Creatinine 0.92 Estimat Glomerular Filtration 62 Rate Random Glucose 310 Calcium Level 6.1 Protein Corrected Calcium 9.2 Total Protein 1.8 Blood Gas Puncture Site DRAWN IN OR ART LINE Blood Gas Patient Temperature 98.6 98.6 Blood Gas HCO3 17 15 Blood Gas Base Excess -9.2 -9.4 Blood Gas Oxygen Saturation 97 98 Arterial Blood pH 7.26 7.34 Arterial Blood Partial 38 29 Pressure CO2 Arterial Blood Partial 225 246 Pressure O2 Arterial Blood Oxygen Content 15.1 11.5 Arterial Blood 1.2 1.3 Carboxyhemoglobin Arterial Blood Methemoglobin 0.9 0.8 Blood Gas Hemoglobin 10.6 7.9 Oxygen Delivery Device OR VENTILATOR Blood Gas Inspired Oxygen 0 50 Blood Bank Comment Blood Gas Ventilator Setting 470/14/PEEP 5/ Test 11/20/16 11/20/16 11/20/16 11/20/16 20:40 20:57 21:15 21:36 Hemoglobin 6.9 Hematocrit 20.6 Blood Bank Comment Crossmatch Leukocyte-Reduced Red Blood Cells Lactic Acid Level 12.5 Phosphorus Level 4.4 Magnesium Level 1.4 Test 11/20/16 11/20/16 11/20/16 11/21/16 21:55 22:22 22:38 00:35 Blood Gas Puncture Site ART LINE ART LINE Blood Gas Patient Temperature 98.6 98.6 Blood Gas HCO3 15 18 Blood Gas Base Excess -10.5 -7.8 Blood Gas Oxygen Saturation 97 98 Arterial Blood pH 7.30 7.30 Arterial Blood Partial 31 37 Pressure CO2 Arterial Blood Partial 301 259 Pressure O2 Arterial Blood Oxygen Content 8.4 12.1 Arterial Blood 1.5 1.0 Carboxyhemoglobin Arterial Blood Methemoglobin 1.3 1.0 Blood Gas Hemoglobin 5.6 8.3 Oxygen Delivery Device VENTILATOR VENTILATOR Blood Gas Ventilator Setting AC24/475/5PEEP AC470/24/PEEP5 Blood Gas Inspired Oxygen 60 60 Blood Bank Comment Test 11/21/16 11/21/16 11/21/16 11/21/16 01:30 02:28 02:55 06:55 White Blood Count 6.3 6.5 Red Blood Count 2.11 3.84 Hemoglobin 6.1 11.2 Hematocrit 17.5 32.4 Mean Corpuscular Volume 83.1 84.3 Mean Corpuscular Hemoglobin 28.9 29.1 Mean Corpuscular Hemoglobin 34.7 34.5 Concent Red Cell Distribution Width 15.0 15.0 Platelet Count 116 90 Mean Platelet Volume 7.0 7.6 Prothrombin Time 12.0 11.7 Prothromb Time International 1.1 1.1 Ratio Activated Partial 24.0 26.5 Thromboplast Time Fibrinogen 327 317 Sodium Level 139 Potassium Level 3.5 Chloride Level 104 Carbon Dioxide Level 22.8 Anion Gap 12 Blood Urea Nitrogen 7 Creatinine 1.07 Estimat Glomerular Filtration 52 Rate Random Glucose 244 Calcium Level 8.5 Magnesium Level 1.8 Blood Type O POSITIVE Crossmatch Leukocyte-Reduced Red Blood Cells Blood Bank Comment Lactic Acid Level 6.1 (Rosa Marie) Result Diagram: 11/21/16 0655 11/21/16 0130 Imaging Last Impressions Femur X-Ray 11/20/16 0000 Signed Impressions: Service Date/Time: November 18:16 - CONCLUSION: Surgical hardware as described above. This all appears well placed. Nigel Goodman MD Chest X-Ray 11/20/16 0000 Signed Impressions: Service Date/Time: November 18:48 - CONCLUSION: Left lower lobe consolidation or atelectasis with an accompanying mild to moderate left pleural effusion. Nigel Goodman MD (Rosa Marie) A/P Diagnosis: (1) Respiratory failure (2) Lactic acidosis (3) Postoperative anemia due to acute blood loss (4) Right femoral fracture (5) orif right femur (6) Status post total replacement of right hip (7) Chronic anticoagulation (8) History of atrial fibrillation (9) History of CVA (cerebrovascular accident) Assessment and Plan Thank you for this consultation 61-year-old female admitted for elective right total hip arthroplasty, Intra-Op there was right femur fracture that required ORIF. Patient had significant blood loss, 4-5 L. Patient required mechanical ventilation for respiratory failure. Multiple broad products, PRBC and FFP given. Hemodynamically unstable requiring pressor support -Critical care managing -Continue with vent support, possible extubation today Continue with sedation as needed Pain management Hold anticoagulation at this time, follow H&H closely -SCDs for DVT prophylaxis History of CVA, on anticoagulation Monitor History of A. fib, currently sinus rhythm Continuous cardiac telemetry Protonix for GI prophylaxis SCDs for DVT prophylaxis Condition guarded Plan of care discussed with the attending, RN. Further management of the patient will be dependent on the hospital course This patient was seen by myself and Dr. Buchanan, this consultation is written on his behalf (Rosa Marie) Assessment and Plan Patient seen and examined as above [id number] time spent with patient Chart reviewed Labs reviewed Medications reviewed Plan of care discussed with TROUBLE LOCATER Discussed with patient Discussed with RN in detail (Davidson Buchanan MD) Problem Qualifiers (1) Respiratory failure: Qualified Code: J96.00 - Acute respiratory failure, unspecified whether with hypoxia or hypercapnia (2) Right femoral fracture: Rosa Marie Nov 21, 2016 09:40 Davidson Buchanan MD Nov 21, 2016 16:46
--- NOTE | 2016-11-21 10:09 | HHI.CCPN ---
Subjective Remarks/Hospital Course 61 yo WF with PMH of stroke at age 26 for which she is chronically on anticoagulation with warfarin, GERD, who presented to same day surgery for right total hip arthroplasty. Intraoperatively, the R femur fractured resulting in acute blood loss. Underwent ORIF femur and R hip arthroplasty. DIscussed with Dr. Dawn with anesthesia who reports 4-5 L of EBL and states patient was hemodynamically unstable intraoperatively. Intraoperatively, Hgb had dropped to 3. She received 5.1 L of crystalloid, 4 unit of of PRBC. Two units of FFP were ordered in PACU where she is on Epinephrine 3 mcg/min and Levophed 24 mcg/min. Critical care consult was placed for ongoing resuscitation. Patient remains intubated with 7.0 ETT. Records indicate she was intubated with a 3.0 Mac with routine airway. She is hypothermic and coagulopathic with fibrinogen 54, PTT 80, platelet 65. Hgb 6.9. 11/21: Hgb corrected and clotting acceptable. Metabolic acidosis persists but improved. LLL consolidation worrisome - aspiration vs pneumonia; possibly simple atelectasis, but effusion is concerning. Objective Vital Signs Date Time Temp Pulse Resp B/P Pulse Ox O2 Delivery O2 Flow Rate FiO2 11/21/16 07:59 99 35 11/21/16 07:00 Mechanical Ventilator 11/21/16 06:00 85 11/21/16 04:00 97.6 24 143/80 133/81 Intake and Output 11/20/16 11/20/16 11/21/16 08:00 16:00 00:00 Intake Total 13592 ml Output Total 5575 ml Balance 6377 ml Result Diagram: 11/21/16 0655 11/21/16 0130 Other Results Laboratory Tests Test 11/20/16 11/20/16 11/20/16 11/20/16 17:25 18:18 20:22 21:55 Blood Gas Puncture Site DRAWN IN OR DRAWN IN OR ART LINE ART LINE Blood Gas Patient Temperature 98.6 98.6 98.6 98.6 Blood Gas HCO3 17 mmol/L 17 mmol/L 15 mmol/L 15 mmol/L (22-26) (22-26) (22-26) (22-26) Blood Gas Base Excess -8.5 mmol/L -9.2 mmol/L -9.4 mmol/L -10.5 mmol/L (-2-2) (-2-2) (-2-2) (-2-2) Blood Gas Oxygen Saturation 98 % (90-100) 97 % (90-100) 98 % (90-100) 97 % (90- 100) Arterial Blood pH 7.25 7.26 7.34 7.30 (7.380-7.420) (7.380-7.420) (7.380-7.420) (7.380-7.420) Arterial Blood Partial 41 mmHg (38-42) 38 mmHg (38-42) 29 mmHg (38-42) 31 mmHg ( 38-42) Pressure CO2 Arterial Blood Partial 257 mmHg 225 mmHg 246 mmHg 301 mmHg Pressure O2 (61-120) (61-120) (61-120) (61-120) Arterial Blood Oxygen Content 4.9 Vol % 15.1 Vol % 11.5 Vol % 8.4 Vol % (12.0-20.0) (12.0-20.0) (12.0-20.0) (12.0-20.0) Arterial Blood 1.7 % (0-4) 1.2 % (0-4) 1.3 % (0-4) 1.5 % (0-4) Carboxyhemoglobin Arterial Blood Methemoglobin 0.8 % (0-2) 0.9 % (0-2) 0.8 % (0-2) 1.3 % (0-2) Blood Gas Hemoglobin 3.0 G/DL 10.6 G/DL 7.9 G/DL 5.6 G/DL (12.0-16.0) (12.0-16.0) (12.0-16.0) (12.0-16.0) Oxygen Delivery Device OPERATING ROOM OR VENTILATOR VENTILATOR Blood Gas Inspired Oxygen 53 % 0 % 50 % 60 % Blood Gas Ventilator Setting 470/14/PEEP 5/ AC24/475/5PEEP Test 11/21/16 00:35 Blood Gas Puncture Site ART LINE Blood Gas Patient Temperature 98.6 Blood Gas HCO3 18 mmol/L (22-26) Blood Gas Base Excess -7.8 mmol/L (-2-2) Blood Gas Oxygen Saturation 98 % (90-100) Arterial Blood pH 7.30 (7.380-7.420) Arterial Blood Partial 37 mmHg (38-42) Pressure CO2 Arterial Blood Partial 259 mmHg Pressure O2 (61-120) Arterial Blood Oxygen Content 12.1 Vol % (12.0-20.0) Arterial Blood 1.0 % (0-4) Carboxyhemoglobin Arterial Blood Methemoglobin 1.0 % (0-2) Blood Gas Hemoglobin 8.3 G/DL (12.0-16.0) Oxygen Delivery Device VENTILATOR Blood Gas Ventilator Setting AC470/24/PEEP5 Blood Gas Inspired Oxygen 60 % Objective Remarks Pulse 108, sinus tach on the monitor. BP 122/66, R 16 sats 100% on mechanical ventilation GENERAL: Well-nourished, well-developed patient who is orotracheally intubated. Will open eyes and moves BUE to command. SKIN: Warm peripherally with palpable radial and pedal pulses bilaterally. HEAD: Atraumatic. Normocephalic. EYES: Pupils equal and round 3 mm reactive. ENT: No nasal bleeding or discharge. Mucous membranes pink and moist. NECK: Trachea midline. No JVD. CARDIOVASCULAR: Regular rate and rhythm, sinus tach on the monitor.. No murmurs rubs or gallops. RESPIRATORY: She is breathing 18 times a minute. Lungs are clear to auscultation bilaterally. No wheezes Rales or rhonchi. GASTROINTESTINAL: Abdomen soft, non-tender, nondistended. Sounds are active. Amos catheter in place with clear urine output MUSCULOSKELETAL: Extremities without clubbing, cyanosis. There is dressing in place overlying right hip. DP pulses are palpable bilaterally NEUROLOGICAL: She opens eyes to voice. Follows commands with squeeze BUE. Nods head to questions. A/P Assessment and Plan NEURO: History of stroke with residual R sided weakness Insomnia Restless leg syndrome Fentanyl for analgosedation Target RASS -2 Neurovascular checks RLE q 1 hour. Hold trazodone 100 mg by mouth daily. Hold ropinirole 0.5 mg by mouth daily RESP: Acute respiratory failure History of tobacco abuse, no longer active smoker. Ventilator bundle Adjust to PRVC TV 470/rate 24/P5/FiO60% to help compensate for metabolic acidemia CV: Hemorrhagic shock Right radial art line in place. Hemodynamic monitoring via Ty Trac is consistent with hypovolemic/hemorrhagic shock, now improved Levophed to maintain mean arterial pressure greater than 65. Received 5 L crystalloid in OR and 2 L in PACU. Correct coagulopathy and acute blood loss anemia with product resuscitation as per below. Serial lactic acid, monitor UOP, monitor base deficit as markers of resuscitation. GI: GERD OGT place LIWS. NPO FEN/RENAL: Hypocalcemia Monitor intake and output hourly. Monitor electrolytes and replace as indicated. Will need aggressive calcium replacement as resuscitation of blood products is ongoing. ID: Monitor for evidence of infection Perioperative cefazolin. HEME: Acute DIC secondary to acute blood loss and consumption. Acute blood loss anemia Chronic anticoagulation with Coumadin (discontinued 6 days preoperatively) Serial monitoring of CBC, coags, fibrinogen. Received 4 units PRBC in OR. 2 units FFP in PACU Stat transfusion 3 units PRBC, 2 units cryo, 2 units platelet and additional 2 units FFP (for total of 4 units) for hemostatic resuscitation. TXA 1 gram x1 Calcium chloride 2 gram IV via CVL. External rewarming to address hypothermia. Followup hgb was 6.1 at 01:30 but coagulopathy corrected, bleeding clinically slowed, patient rewarmed, off pressors. Transfused additional 3 units PRBC and gave Lasix 20 mg IV. Good UOP. Compartments are not tense on reexamination, pedal pulses palpable. ENDO: Acute hyperglycemia Monitor bedside glucose and initiate insulin drip algorithm #1 ORTHO: R hip arthroplasty and ORIF R femur 11/20/16 Dr. Barreto will follow. Neurovascular check q 1 hour. PROPH: No further pharmacologic DVT prophylaxis at this time due to profound coagulopathy and hemorrhagic shock. Protonix 40 mg IV daily for stress ulcer prophylaxis ACCESS: Right IJ central venous line placed in OR 11/20 #1, right radial art line placed in OR 11/20 #2 Overall impression: Critically ill with resolving lactic acidosis following resuscitation from the shock state. Will start antibiotics for LLL infiltrate and narrow after cultures return. Critical care 39 mins Earl Hubbard MD Nov 21, 2016 10:09
[2016-11-21] MEDS: cefTRIAXone INJ 1,000 MG in SODIUM CHLORIDE 0.9% INJ 100 ML IV SCH (10:50)
[2016-11-21] MEDS: LEVOFLOXACIN 750 MG PREMIX INJ 150 ML IV SCH (10:50)
[2016-11-21 10:54] LABS: BLOOD GAS BASE EXCESS -0.5 mmol/L (-2-2); BLOOD GAS CARBOXYHEMOGLOBIN 1.2 % (0-4); BLOOD GAS HCO3 25 mmol/L (22-26); BLOOD GAS METHEMOGLOBIN 0.9 % (0-2); BLOOD GAS O2 HGB SATURATION 96 % (90-100); BLOOD GAS OXYGEN CONTENT 15.1 Vol % (12.0-20.0); BLOOD GAS PCO2 50 mmHg (38-42); BLOOD GAS PO2 109 mmHg (61-120); BLOOD GAS TOTAL HGB 11.1 G/DL (12.0-16.0); CRITICAL VALUE NO; OXYGEN DEVICE VENTILATOR; TEMP CORR TO 98.6
[2016-11-21 10:56] LABS: DRAW SITE LT RADIAL; FIO2 35 %; NUMBER OF ARTERIAL PUNCTURES 3; STAT NO; ULNAR PULSE PRESENT; VENT SETTINGS PRVC/AC
[2016-11-21 11:37] LABS: BICARBONATE 29.3 MEQ/L (21.0-32.0); POTASSIUM 4.2 MEQ/L (3.5-5.1)
[2016-11-21] MEDS: POVIDONE IODINE 7.5% SCRUB 118 ML BOTTLE TOP SCH (12:30)
--- NOTE | 2016-11-21 15:21 | MP ---
cc: AIDEN ACE MD DATE OF SURGERY: 11/20/2016 PREOPERATIVE DIAGNOSIS Right hip osteoarthritis. POSTOPERATIVE DIAGNOSIS Right hip osteoarthritis. PROCEDURE Right hip total hip arthroplasty, open reduction, internal fixation right femur. COMPLICATION Right femur intraoperative. SURGEON Mary Lou Dawn PROCEDURE IN DETAIL Informed consent was obtained. The patient was taken to the operating room and placed in a supine position on the operating table. She then received general anesthesia by the anesthesiologist. At that time the patient was placed in a lateral decubitus position with the right hip up on the operating table. The patient was given two grams of Ancef prior to the initiation of the operative procedure. The right hip was prepped with Betadine soap followed by Betadine paint. Draping commenced with sterile down sheet, sterile towel about the hip, split sheets. Stockinette was applied over the foot and calf. This was wrapped with Coban. A laparotomy sheet was applied. A timeout was held and confirmed. At that time the hip was flexed and an incision was placed beginning distal to the greater trochanter, carried over the trochanter up the buttock region. The skin and subcutaneous tissue was divided. Bleeders were coagulated utilizing the Bovie. The short external rotators were taken down and the hip capsule was exposed. This was opened. The hip as then posteriorly dislocated. Utilizing a guide an osteotomy was made in the neck and the femoral head was removed. This was sized at a size 44 and the ligamentum teres was removed. The labrum was excised. The reamers were then reamed up to the 52 mm reamer. A 52 trial was tried; this was found to be satisfactory. The 52 [place] Gription Acetabular Sector shell from the [employer] was impacted into the acetabulum. Next, two screws were placed. These were 15 mm length Sector screws. Next, the Ultrex polyethylene acetabular liner from the [place] [employer], 32 mm inner diameter, 52 mm outer diameter was impacted into the cup and attention was turned to the femoral side. A femoral canal finder was utilized and the femoral canal was reamed up to 15 mm. The broaches were then placed, first the 10 followed by the 13.5, followed by the 15 mm broach. This was found to be quite secure. A trial reduction was performed and found to be satisfactory. The trial was removed and the AML femoral stem, size 15 small stature, was impacted into the proximal femur. The 1+, 32 mm diameter Articul/maricarmen femoral head was impacted onto the femur and the final reduction was performed. When moving the patient's hip through a range of motion a snap was felt and there appeared to be some extra motion in the femoral shaft. X-ray was brought into position and a femoral shaft fracture which had a component up to the tip of the prosthesis which carried into a slightly comminuted fracture located above the patient's total knee and distal to the stem. At that time the incision was brought down from the hip. The skin and subcutaneous tissue was divided. The fracture was reduced when held with clamps. A Synthes eight-hole plate was selected which was a distal femoral locking plate. This was fixed and four screws were noted to be above the fracture, four screws below the fracture and locking screws were placed into the distal femur. X-rays were taken demonstrating satisfactory position of the plate and fixation. It did appear, however, that a non-displaced component of the fracture did extend up to the tip of the stem. Seven locking cables were then placed about the shaft and also the plate and screws to further stabilize this fracture. The fracture appeared quite stable and x-rays were obtained at that time demonstrating satisfactory reduction. At that time the wound was irrigated and closed with #1 Vicryl in the deep tissues including the vastus fascia and the fascia fariba. The subcutaneous tissue was closed with 2-0 Vicryl and the skin with skin olivia. Xeroform, 4x4s, ABD and tape were applied to the patient's hip and femur. The patient then had a canvas knee splint, was placed in an abduction pillow and turned supine on the operating table. She did experience significant blood loss during surgery and was transfused a unit of autologous blood and three additional units of packed cells. The patient was taken to the recovery room in stable condition on the vent and is going to be watched in the ICU overnight. MD EDIN Tam/SUDEEP /7:14 PM /3:19 PM ALEXSANDER
[2016-11-21 16:50] LABS: MEAN CELL VOLUME 83.2 FL (80.0-100.0); MEAN CORPUSCULAR HEMOGLOBIN 29.3 PG (27.0-34.0); MEAN CORPUSCULAR HGB CONC 35.2 % (32.0-36.0); PLATELET COUNT 94 TH/MM3 (150-450); RED CELL DISTRIBUTION WIDTH 14.9 % (11.6-17.2); WHITE BLOOD COUNT 8.4 TH/MM3 (4.0-11.0)
[2016-11-21 17:07] LABS: REVIEW FLAG FINAL
[2016-11-21] MEDS: ACETAMINOPHEN/HYDROcodone 325 MG/5 MG TAB PO PRN (21:48)
[2016-11-21 23:15] LABS: HEMATOCRIT 27.4 % (35.0-46.0); MEAN CELL VOLUME 82.9 FL (80.0-100.0); MEAN CORPUSCULAR HEMOGLOBIN 29.5 PG (27.0-34.0); MEAN CORPUSCULAR HGB CONC 35.6 % (32.0-36.0); PLATELET COUNT 99 TH/MM3 (150-450); RED BLOOD COUNT 3.31 MIL/MM3 (4.00-5.30); RED CELL DISTRIBUTION WIDTH 14.9 % (11.6-17.2); WHITE BLOOD COUNT 9.3 TH/MM3 (4.0-11.0)
[2016-11-21 23:19] LABS: REVIEW FLAG FINAL
[2016-11-22] VITALS (11 sets, daily range): BP systolic 96–120; BP diastolic 59–70; PULSE 98–123; RESP 15–27; TEMP 98.1–98.9; O2SAT 93–100
[2016-11-22] MEDS: ACETAMINOPHEN/HYDROcodone 325 MG/5 MG TAB PO PRN ×4 (02:07→20:47)
[2016-11-22] MEDS: CHLORHEXIDINE GLUCONATE 2 % 1 PACK (2 CLOTHS) TOP SCH (04:45)
[2016-11-22 05:34] LABS: HEMATOCRIT 26.1 % (35.0-46.0); MEAN CELL VOLUME 84.1 FL (80.0-100.0); MEAN CORPUSCULAR HEMOGLOBIN 29.3 PG (27.0-34.0); MEAN CORPUSCULAR HGB CONC 34.9 % (32.0-36.0); PLATELET COUNT 90 TH/MM3 (150-450); RED CELL DISTRIBUTION WIDTH 15.2 % (11.6-17.2); WHITE BLOOD COUNT 8.8 TH/MM3 (4.0-11.0)
[2016-11-22 05:41] LABS: REVIEW FLAG FINAL
[2016-11-22] MEDS: CHLORHEXIDINE 0.12% (ORAL KIT) 15 ML CUP MT SCH (08:00)
[2016-11-22] MEDS: fentaNYL DRIP 250 ML IV SCH (08:41)
[2016-11-22] MEDS: SODIUM CHLORIDE 0.9% FLUSH 5 ML FLUSH IV FLUSH SCH ×2 (08:42→20:20)
[2016-11-22] MEDS: PANTOPRAZOLE SODIUM 40 MG VIAL IV SCH (08:44)
--- NOTE | 2016-11-22 09:57 | HHI.CCPN ---
Subjective Remarks/Hospital Course 61 yo WF with PMH of stroke at age 26 for which she is chronically on anticoagulation with warfarin, GERD, who presented to same day surgery for right total hip arthroplasty. Intraoperatively, the R femur fractured resulting in acute blood loss. Underwent ORIF femur and R hip arthroplasty. DIscussed with Dr. Dawn with anesthesia who reports 4-5 L of EBL and states patient was hemodynamically unstable intraoperatively. Intraoperatively, Hgb had dropped to 3. She received 5.1 L of crystalloid, 4 unit of of PRBC. Two units of FFP were ordered in PACU where she is on Epinephrine 3 mcg/min and Levophed 24 mcg/min. Critical care consult was placed for ongoing resuscitation. Patient remains intubated with 7.0 ETT. Records indicate she was intubated with a 3.0 Mac with routine airway. She is hypothermic and coagulopathic with fibrinogen 54, PTT 80, platelet 65. Hgb 6.9. 11/21: Hgb corrected and clotting acceptable. Metabolic acidosis persists but improved. LLL consolidation worrisome - aspiration vs pneumonia; possibly simple atelectasis, but effusion is concerning. 11/22: Breathing comfortably after extubation. Follow sputum C&S, adjust antibiotics or d/c. Good hemodynamics. Objective Vital Signs Date Time Temp Pulse Resp B/P Pulse Ox O2 Delivery O2 Flow Rate FiO2 11/22/16 08:00 98.3 119 27 107/59 93 11/22/16 07:00 Nasal Cannula 2.00 11/21/16 16:00 35 Intake and Output 11/21/16 11/21/16 11/22/16 08:00 16:00 00:00 Intake Total 2816 ml 426 ml 492 ml Output Total 2150 ml 425 ml 250 ml Balance 666 ml 1 ml 242 ml Result Diagram: 11/22/16 0500 11/21/16 1050 Other Results Laboratory Tests Test 11/21/16 10:40 Blood Gas Puncture Site LT RADIAL Blood Gas Patient Temperature 98.6 Blood Gas HCO3 25 mmol/L (22-26) Blood Gas Base Excess -0.5 mmol/L (-2-2) Blood Gas Oxygen Saturation 96 % (90-100) Arterial Blood pH 7.32 (7.380-7.420) Arterial Blood Partial 50 mmHg (38-42) Pressure CO2 Arterial Blood Partial 109 mmHg Pressure O2 (61-120) Arterial Blood Oxygen Content 15.1 Vol % (12.0-20.0) Arterial Blood 1.2 % (0-4) Carboxyhemoglobin Arterial Blood Methemoglobin 0.9 % (0-2) Blood Gas Hemoglobin 11.1 G/DL (12.0-16.0) Oxygen Delivery Device VENTILATOR Blood Gas Ventilator Setting PRVC/AC Blood Gas Inspired Oxygen 35 % Objective Remarks Pulse 109, sinus tach on the monitor. BP 107/65, R 20 sats 94% GENERAL: Well-nourished, well-developed patient. SKIN: Warm peripherally with palpable radial and pedal pulses bilaterally. HEAD: Atraumatic. Normocephalic. EYES: Pupils equal and round 2 mm reactive. ENT: No nasal bleeding or discharge. Mucous membranes pink and moist. NECK: Trachea midline. Airway widely patent. CARDIOVASCULAR: Regular rate and rhythm, no JVD No murmurs rubs or gallops. RESPIRATORY: She is breathing 18 times a minute. Lungs are clear to auscultation bilaterally. No wheezes Rales or rhonchi. GASTROINTESTINAL: Abdomen soft, non-tender, nondistended. Sounds are active. Amos catheter in place with clear urine output MUSCULOSKELETAL: Extremities without clubbing, cyanosis. There is dressing in place overlying right hip. DP pulses are palpable bilaterally. NEUROLOGICAL: O X 3, alert, cooperative. A/P Assessment and Plan NEURO: History of stroke with residual R sided weakness Insomnia Restless leg syndrome Fentanyl for analgosedation Target RASS -2 Neurovascular checks RLE q 1 hour. Hold trazodone 100 mg by mouth daily. Hold ropinirole 0.5 mg by mouth daily RESP: Acute respiratory failure History of tobacco abuse, no longer active smoker. Ventilator bundle Incentive spirometer CV: Hemorrhagic shock Right radial art line in place. Hemodynamic monitoring via Ty Trac is consistent with hypovolemic/hemorrhagic shock, now improved Levophed to maintain mean arterial pressure greater than 65. Received 5 L crystalloid in OR and 2 L in PACU. Correct coagulopathy and acute blood loss anemia with product resuscitation as per below. Anticipate need for diuretics soon. GI: GERD OGT place LIWS. NPO FEN/RENAL: Hypocalcemia Monitor intake and output hourly. Monitor electrolytes and replace as indicated. ID: Monitor for evidence of infection Perioperative cefazolin. Broad coverage pending sputum result. HEME: Acute DIC secondary to acute blood loss and consumption. Acute blood loss anemia Chronic anticoagulation with Coumadin (discontinued 6 days preoperatively) Serial monitoring of CBC, coags, fibrinogen. Received 4 units PRBC in OR. 2 units FFP in PACU Stat transfusion 3 units PRBC, 2 units cryo, 2 units platelet and additional 2 units FFP (for total of 4 units) for hemostatic resuscitation. TXA 1 gram x1 Calcium chloride 2 gram IV via CVL. External rewarming to address hypothermia. Followup hgb was 6.1 at 01:30 but coagulopathy corrected, bleeding clinically slowed, patient rewarmed, off pressors. Transfused additional 3 units PRBC and gave Lasix 20 mg IV. Good UOP. Compartments are not tense on reexamination, pedal pulses palpable. Resolved 11/23 ENDO: Acute hyperglycemia Monitor bedside glucose and initiate insulin drip algorithm #1 ORTHO: R hip arthroplasty and ORIF R femur 11/20/16 Dr. Barreto will follow. Neurovascular check q 1 hour. PROPH: No further pharmacologic DVT prophylaxis at this time due to profound coagulopathy and hemorrhagic shock. Protonix 40 mg IV daily for stress ulcer prophylaxis ACCESS: Right IJ central venous line placed in OR 11/20 #3, right radial art line placed in OR 11/20 #3 Overall impression: Much improved after earlier problems with unexpected bleeding. Check left side infiltrate. Earl Hubbard MD Nov 22, 2016 09:57
[2016-11-22] MEDS: LEVOFLOXACIN 750 MG PREMIX INJ 150 ML IV SCH (10:37)
[2016-11-22] MEDS: cefTRIAXone INJ 1,000 MG in SODIUM CHLORIDE 0.9% INJ 100 ML IV SCH (10:37)
--- NOTE | 2016-11-22 11:28 | RADRPT ---
EXAM DATE/TIME: 11/22/2016 10:56 [facility] COMPARISON: No previous studies available for comparison. INDICATIONS : Shortness of breath. Infiltrate. MEDICAL HISTORY : None. SURGICAL HISTORY : None. ENCOUNTER: Subsequent ACUITY: 3 days PAIN SCORE: 0/10 LOCATION: Bilateral chest FINDINGS: Left base consolidation considerably improved in the interim. Mild atelectasis has developed at the r ight base. No effusion seen. No pneumothorax. Patient has been extubated. Right internal jugular central venous catheter are again seen, tip at the atriocaval junction. CONCLUSION: 1. Improving left base consolidation. 2. Mild right base atelectasis has developed. 3. Endotracheal tube out. Nigel Ramon MD on November 22, 2016 at 11:25 Board Certified Radiologist. This report was verified electronically.
--- NOTE | 2016-11-22 11:30 | PD.ORT.PN ---
Subjective Post Op Day #: 2 Pain Scale: Some pain Subjective Remarks Patient feels better. Still on 3rd floor. Some discomfort right lower extremity. Felling in right foot is improved but still cannot dorsiflex ankle or foot. Objective Vitals Vital Signs Date Time Temp Pulse Resp B/P Pulse Ox O2 Delivery O2 Flow Rate FiO2 11/22/16 10:00 109 11/22/16 10:00 95 Nasal Cannula 2.00 11/22/16 08:00 98.3 119 27 107/59 93 11/22/16 08:00 114 11/22/16 07:00 97 Nasal Cannula 2.00 11/22/16 06:00 108 11/22/16 04:00 98.1 111 23 110/62 98 11/22/16 04:00 112 11/22/16 02:00 98 11/22/16 00:00 98 11/22/16 00:00 98.2 98 15 120/60 99 11/21/16 22:00 108 11/21/16 20:05 99 Nasal Cannula 4.00 11/21/16 20:00 98.0 100 20 110/57 98 11/21/16 20:00 97 11/21/16 19:00 99 Nasal Cannula 2.00 11/21/16 18:00 104 11/21/16 16:00 97.7 99 22 110/65 100 11/21/16 16:00 106 11/21/16 16:00 35 11/21/16 14:00 97 11/21/16 12:19 97 35 11/21/16 12:00 98.0 107 10 135/73 96 Arterial Line 11/21/16 12:00 40 11/21/16 12:00 107 I/O 11/21/16 11/21/16 11/21/16 11/22/16 11/22/16 11/22/16 07:00 15:00 23:00 07:00 15:00 23:00 Intake Total 2816 ml 426 ml 492 ml 850 ml Output Total 2150 ml 425 ml 250 ml 550 ml Balance 666 ml 1 ml 242 ml 300 ml Intake Oral 360 ml 720 ml IV Total 1225 ml 426 ml 132 ml 130 ml Packed Cells 750 ml FFP 231 ml Platelets 376 ml Cryoprecipitate 234 ml Output Urine Total 2150 ml 425 ml 250 ml 550 ml # Bowel Movements 0 0 0 0 Result Diagram: 11/22/16 0500 11/21/16 1050 Other Results Last Impressions Femur X-Ray 11/20/16 0000 Signed Impressions: Service Date/Time: November 18:16 - CONCLUSION: Surgical hardware as described above. This all appears well placed. Nigel Goodman MD Chest X-Ray 11/20/16 0000 Signed Impressions: Service Date/Time: November 18:48 - CONCLUSION: Left lower lobe consolidation or atelectasis with an accompanying mild to moderate left pleural effusion. Nigel Goodman MD Objective Remarks Patient has had dressing changed today by nurse and new dressing has been applied. Some thigh swelling. Several blisters from tape. Patient reports that she has improved feeling in right foot but unable to dorsiflex ankle or toes. Assessment & Plan Ortho Post Op Day #: 2 Problem List: (1) Status post total replacement of right hip (2) Right femoral fracture (3) orif right femur Assessment and Plan Patient is improving. Abduction pillow removed but will continue canvas knee splint at all times. Will consult PT for evaluation and hopefully will be able to advance to a chair but patient is to remain non-weight bearing on the right leg. Will have boot or brace applied to right foot. Will need blood clot prevention when stable for this. Srinath Barreto MD Nov 22, 2016 11:30
--- NOTE | 2016-11-22 11:57 | HHI.PR ---
Subjective Remarks extubated 11/21 on NC 2L awake, oriented x 3 c/o thirst no cp no sob pain well controlled no fever HH stable dec sensation right foot Objective Objective Results - Vital Signs Date Time Temp Pulse Resp B/P Pulse Ox O2 Delivery O2 Flow Rate FiO2 11/22/16 10:00 109 11/22/16 10:00 95 Nasal Cannula 2.00 11/22/16 08:00 98.3 119 27 107/59 93 11/22/16 08:00 114 11/22/16 07:00 97 Nasal Cannula 2.00 11/22/16 06:00 108 11/22/16 04:00 98.1 111 23 110/62 98 11/22/16 04:00 112 11/22/16 02:00 98 11/22/16 00:00 98 11/22/16 00:00 98.2 98 15 120/60 99 11/21/16 22:00 108 11/21/16 20:05 99 Nasal Cannula 4.00 11/21/16 20:00 98.0 100 20 110/57 98 11/21/16 20:00 97 11/21/16 19:00 99 Nasal Cannula 2.00 11/21/16 18:00 104 11/21/16 16:00 97.7 99 22 110/65 100 11/21/16 16:00 106 11/21/16 16:00 35 11/21/16 14:00 97 11/21/16 12:19 97 35 11/21/16 12:00 98.0 107 10 135/73 96 Arterial Line 11/21/16 12:00 40 11/21/16 12:00 107 I/O 11/21/16 11/21/16 11/21/16 11/22/16 11/22/16 11/22/16 07:00 15:00 23:00 07:00 15:00 23:00 Intake Total 2816 ml 426 ml 492 ml 850 ml Output Total 2150 ml 425 ml 250 ml 550 ml Balance 666 ml 1 ml 242 ml 300 ml Intake Oral 360 ml 720 ml IV Total 1225 ml 426 ml 132 ml 130 ml Packed Cells 750 ml FFP 231 ml Platelets 376 ml Cryoprecipitate 234 ml Output Urine Total 2150 ml 425 ml 250 ml 550 ml # Bowel Movements 0 0 0 0 Result Diagram: 11/22/16 0500 11/21/16 1050 Imaging Last Impressions Femur X-Ray 11/20/16 0000 Signed Impressions: Service Date/Time: November 18:16 - CONCLUSION: Surgical hardware as described above. This all appears well placed. Nigel Goodman MD Chest X-Ray 11/20/16 0000 Signed Impressions: Service Date/Time: November 18:48 - CONCLUSION: Left lower lobe consolidation or atelectasis with an accompanying mild to moderate left pleural effusion. Nigel Goodman MD Other Results Laboratory Tests Test 11/21/16 11/21/16 11/22/16 16:00 22:45 05:00 White Blood Count 8.4 9.3 8.8 Red Blood Count 3.60 3.31 3.10 Hemoglobin 10.6 9.8 9.1 Hematocrit 30.0 27.4 26.1 Mean Corpuscular Volume 83.2 82.9 84.1 Mean Corpuscular Hemoglobin 29.3 29.5 29.3 Mean Corpuscular Hemoglobin 35.2 35.6 34.9 Concent Red Cell Distribution Width 14.9 14.9 15.2 Platelet Count 94 99 90 Mean Platelet Volume 8.1 8.5 8.7 Nasal Screen MRSA (PCR) NEGATIVE ROS General: No: Fatigue, Weakness HEENT: No: Sore Throat, Dysphagia Cardiac: No: Chest Pain, Edema, Palpitations Pulmonary: No: Cough, SOB, Wheezing GI: No: Abdominal Pain, BM, Diarrhea, N/V /CUSHION FORMER: No: Dysuria, Urgency Neuro/MS: Other (right leg pain ), No: Lightheaded, Confusion Psych: No: Anxiety, Depression Skin: No: Itching, Rash Physical Exam Physical Exam GENERAL: Patient mechanically ventilated, does not appear in any distress SKIN: No rashes, ecchymoses or lesions. Cool and dry. HEAD: Atraumatic. Normocephalic. No temporal or scalp tenderness. EYES: Pupils equal round and reactive. No scleral icterus. No injection or drainage. ENT: Nose without bleeding, purulent drainage or septal hematoma. Throat without erythema, tonsillar hypertrophy or exudate. Uvula midline. Airway patent. NECK: Trachea midline. No JVD or lymphadenopathy. Supple, nontender, no meningeal signs. CARDIOVASCULAR: Regular rate and rhythm without murmurs, gallops, or rubs. RESPIRATORY: Clear to auscultation. Breath sounds equal bilaterally. No wheezes , rales, or rhonchi. GASTROINTESTINAL: Abdomen soft, non-tender, nondistended. No hepato-splenomegaly , or palpable masses. No guarding. MUSCULOSKELETAL: Right leg in canvas splint, dressing to right hip and right thigh, D/I. Pedal pulses 2+ bilaterally. Pretibial edema. NEUROLOGICAL: awake, oriented x 3, grossly normal. Urinary Catheter: Yes Amos insert reason: Surgical/Invasive Proced A/P Diagnosis: (1) Respiratory failure (2) Lactic acidosis (3) Postoperative anemia due to acute blood loss (4) Right femoral fracture (5) orif right femur (6) Status post total replacement of right hip (7) Chronic anticoagulation (8) History of atrial fibrillation (9) History of CVA (cerebrovascular accident) Assessment and Plan 61-year-old female admitted for elective right total hip arthroplasty, Intra-Op there was right femur fracture that required ORIF. Patient had significant blood loss, 4-5 L. Patient required mechanical ventilation for respiratory failure. Multiple broad products, PRBC and FFP given. Hemodynamically unstable requiring pressor support Resp. failure -Critical care signed off -ext. 11/21 -stable -Continue duonebs Anemia, post op bleeding -S/P PRBC, FFP transfusion -HH stable 9.1/26.1 Lactic acidosis, poss. sepsis, poss. PNA LLL consolidation -lactic acid 2.3 now -continue empiric abx S/P elective right total hip arthroplasty, Intra-Op there was right femur fracture that required ORIF 11/20 -Post op care Pain management Hold anticoagulation at this time, follow H&H closely -SCDs for DVT prophylaxis, anticoagulation when ok per ortho -PT eval per ortho orders, NWB History of CVA, on anticoagulation Monitor History of A. fib, currently sinus rhythm Continuous cardiac telemetry Protonix for GI prophylaxis SCDs for DVT prophylaxis Ok to tx to 6 [facility] Labs in am D/W RN D/W Dr. Buchanan D/W pt, This patient was seen by myself and Dr. Buchanan, this note is written on his behalf Problem Qualifiers (1) Respiratory failure: Qualified Code: J96.00 - Acute respiratory failure, unspecified whether with hypoxia or hypercapnia (2) Right femoral fracture: Rosa Marie Nov 22, 2016 11:57
[2016-11-22] MEDS: POVIDONE IODINE 7.5% SCRUB 118 ML BOTTLE TOP SCH (12:30)
[2016-11-22] MEDS ORDERED: PHENOL 1.4% SOLN 180 ML BTL PO PRN (22:00)
[2016-11-23] VITALS (12 sets, daily range): BP systolic 114–150; BP diastolic 71–87; PULSE 104–120; RESP 18–20; TEMP 97.8–99.7; O2SAT 92–98
[2016-11-23] MEDS: CHLORHEXIDINE GLUCONATE 2 % 1 PACK (2 CLOTHS) TOP SCH (00:08)
[2016-11-23] MEDS: ACETAMINOPHEN/HYDROcodone 325 MG/5 MG TAB PO PRN ×4 (03:33→20:02)
[2016-11-23 06:11] LABS: HEMATOCRIT 22.1 % (35.0-46.0); MEAN CELL VOLUME 85.3 FL (80.0-100.0); MEAN CORPUSCULAR HEMOGLOBIN 29.7 PG (27.0-34.0); MEAN CORPUSCULAR HGB CONC 34.8 % (32.0-36.0); PLATELET COUNT 110 TH/MM3 (150-450); REVIEW FLAG FINAL; WHITE BLOOD COUNT 7.5 TH/MM3 (4.0-11.0)
[2016-11-23 06:43] LABS: BICARBONATE 31.8 MEQ/L (21.0-32.0); POTASSIUM 3.8 MEQ/L (3.5-5.1)
[2016-11-23] MEDS: SODIUM CHLORIDE 0.9% FLUSH 5 ML FLUSH IV FLUSH SCH ×2 (09:00→19:59)
[2016-11-23] MEDS ORDERED: PNEUMOCOCCAL POLYVALENT INJ 25 MCG/0.5 ML SYR IM ONE (10:00)
[2016-11-23] MEDS ORDERED: INFLUENZA VIRUS VACCINE (QUADRIVALENT) 0.5 ML SYR IM ONE (10:00)
[2016-11-23] MEDS: cefTRIAXone INJ 1,000 MG in SODIUM CHLORIDE 0.9% INJ 100 ML IV SCH (11:11)
[2016-11-23] MEDS: PANTOPRAZOLE SODIUM 40 MG VIAL IV SCH (11:12)
[2016-11-23] MEDS: LEVOFLOXACIN 750 MG PREMIX INJ 150 ML IV SCH (11:13)
[2016-11-23] MEDS ORDERED: SODIUM CHLOR 0.9% 250 ML INJ 250 ML IV ONE (11:45)
--- NOTE | 2016-11-23 11:50 | HHI.PR ---
Subjective Remarks Coughing off and on No chest pain No shortness of breath at rest Bruise mild edema left hand Alert, (Cee Rowland) Objective Objective Results - Vital Signs Date Time Temp Pulse Resp B/P Pulse Ox O2 Delivery O2 Flow Rate FiO2 11/23/16 08:00 97.8 104 18 123/75 98 11/23/16 04:30 98.9 118 20 114/71 97 11/23/16 00:31 98.4 119 20 121/77 97 11/22/16 20:59 Nasal Cannula 2.00 11/22/16 20:34 98.9 115 20 115/67 96 11/22/16 17:30 123 96/70 11/22/16 16:00 98.4 117 18 98/68 98 11/22/16 14:00 117 11/22/16 12:00 114 11/22/16 12:00 98.1 116 18 112/64 100 I/O 11/22/16 11/22/16 11/22/16 11/23/16 11/23/16 11/23/16 07:00 15:00 23:00 07:00 15:00 23:00 Intake Total 850 ml 1393 ml Output Total 550 ml 1000 ml 1550 ml 650 ml Balance 300 ml 393 ml -1550 ml -650 ml Intake Oral 720 ml 1000 ml IV Total 130 ml 393 ml Output Urine Total 550 ml 1000 ml 1550 ml 650 ml Stool Total 0 ml # Bowel Movements 0 0 (Cee Rowland) Result Diagram: 11/23/16 0550 11/23/16 0550 ROS General: Fatigue, Weakness (generalized), Other (10 point ROS done positives include generalized weakness and fatigue, tachycardia cough.. Right hip pain. Other systems essentially negative or unremarkable) Cardiac: Other (tachycardia) Pulmonary: Cough Neuro/MS: Other (status post right total hip repair) (Cee Rowland) A/P Assessment and Plan (1) Respiratory failure (2) Lactic acidosis (3) Postoperative anemia due to acute blood loss (4) Right femoral fracture (5) orif right femur (6) Status post total replacement of right hip (7) Chronic anticoagulation (8) History of atrial fibrillation (9) History of CVA (cerebrovascular accident) 10. Tachycardia. Assessment and Plan 61-year-old female admitted for elective right total hip arthroplasty, Intra-Op there was right femur fracture that required ORIF. Patient had significant blood loss, 4-5 L. Patient required mechanical ventilation for respiratory failure. Multiple broad products, PRBC and FFP given. Hemodynamically unstable requiring pressor support.m now stabilized and now to regular room. Resp. failure, resolved -Critical care signed off -stable -Continue duonebs , O2 when necessary Anemia, post op bleeding -S/P PRBC, FFP transfusion -HH stable dropped today, 7.7 with symptoms of tachycardia Patient placed on telemetry. Will receive 2 units of blood today, active RBC Check hemoglobin and hematocrit after transfusion. Discussed with Dr. Buchanan Lactic acidosis, poss. sepsis, poss. PNA LLL consolidation -lactic acid, 2.3, trending down, monitor -continue empiric abx, Rocephin, Levaquin S/P elective right total hip arthroplasty, Intra-Op there was right femur fracture that required ORIF 11/20 -Post op care Pain management Hold anticoagulation at this time, follow H&H closely , as noted above hemoglobin dropping. She will receive 2 units packed RBCs today -SCDs for DVT prophylaxis, anticoagulation when ok per ortho -PT eval per ortho orders, NWB, bed rest continues. Not out of bed yet History of CVA, hold anticoagulation for now Monitor History of A. fib, currently sinus rhythm Continuous cardiac telemetry Rhythm tachycardic this a.m. we'll monitor Protonix for GI prophylaxis SCDs for DVT prophylaxis Labs in am D/W RN D/W Dr. Buchanan D/W pt, This patient was seen by myself and Dr. Buchanan, this note is written on his behalf Problem Qualifiers (1) Respiratory failure: Qualified Code: J96.00 - Acute respiratory failure, unspecified whether with hypoxia or hypercapnia (2) Right femoral fracture: Discussed With: Nurse, Family (patient), Other (Chanel seen on his behalf) ( Cee Rowland) Assessment and Plan Patient seen and examined as above [id number] time spent with patient Labs reviewed Appreciate consultants help Discussed with RN Plan of care discussed with ALEXANDRU (Davidson Buchanan MD) Cee Rowland Nov 23, 2016 11:50 Davidson Buchanan MD Nov 23, 2016 12:14
[2016-11-23] MEDS: SENNOSIDES 8.6 MG TAB PO SCH (19:59)
[2016-11-23] MEDS: DOCUSATE SODIUM 100 MG CAP PO SCH (19:59)
[2016-11-23] MEDS ORDERED: BACITRACIN TOP OINT 15 GM TUBE TOP PRN (21:00)
[2016-11-24] VITALS (7 sets, daily range): BP systolic 119–160; BP diastolic 70–85; PULSE 87–118; RESP 17–19; TEMP 97.1–98.8; O2SAT 92–96
[2016-11-24] MEDS: CHLORHEXIDINE GLUCONATE 2 % 1 PACK (2 CLOTHS) TOP SCH (00:02)
[2016-11-24] MEDS: ACETAMINOPHEN/HYDROcodone 325 MG/5 MG TAB PO PRN ×3 (03:47→17:57)
[2016-11-24 04:18] LABS: HEMATOCRIT 28.1 % (35.0-46.0); MEAN CELL VOLUME 85.7 FL (80.0-100.0); MEAN CORPUSCULAR HEMOGLOBIN 29.9 PG (27.0-34.0); MEAN CORPUSCULAR HGB CONC 34.9 % (32.0-36.0); PLATELET COUNT 129 TH/MM3 (150-450); RED BLOOD COUNT 3.28 MIL/MM3 (4.00-5.30); RED CELL DISTRIBUTION WIDTH 14.9 % (11.6-17.2); REVIEW FLAG FINAL; WHITE BLOOD COUNT 8.1 TH/MM3 (4.0-11.0)
[2016-11-24 04:42] LABS: BICARBONATE 31.6 MEQ/L (21.0-32.0); POTASSIUM 3.5 MEQ/L (3.5-5.1)
[2016-11-24] MEDS: PANTOPRAZOLE SODIUM 40 MG VIAL IV SCH (08:36)
[2016-11-24] MEDS: MAGNESIUM HYDROXIDE SUSP 30 ML CUP PO SCH (08:36)
[2016-11-24] MEDS: DOCUSATE SODIUM 100 MG CAP PO SCH ×2 (08:36→21:05)
[2016-11-24] MEDS: POLYETHYLENE GLYCOL 17 GM PKG PO SCH (08:36)
[2016-11-24] MEDS: SODIUM CHLORIDE 0.9% FLUSH 5 ML FLUSH IV FLUSH SCH ×2 (08:37→21:05)
[2016-11-24] MEDS: cefTRIAXone INJ 1,000 MG in SODIUM CHLORIDE 0.9% INJ 100 ML IV SCH (11:14)
[2016-11-24] MEDS: LEVOFLOXACIN 750 MG PREMIX INJ 150 ML IV SCH (11:14)
--- NOTE | 2016-11-24 15:59 | HHI.PR ---
Subjective Remarks Patient is feeling better Some ache sometime No nausea vomiting No chest pain No diaphoresis No headache or dizziness No abdominal pain Review of system for 10 point system otherwise unremarkable Objective Objective Results - Vital Signs Date Time Temp Pulse Resp B/P Pulse Ox O2 Delivery O2 Flow Rate FiO2 11/24/16 13:50 93 11/24/16 12:21 18 11/24/16 11:42 97.4 100 17 136/77 95 11/24/16 08:00 97.1 87 17 146/80 96 11/24/16 02:40 98.5 106 18 135/81 92 11/24/16 00:45 98.7 112 19 149/85 92 11/23/16 23:40 98.1 107 18 150/87 92 11/23/16 23:15 98.7 112 18 149/85 92 11/23/16 20:55 99.2 112 18 142/78 95 11/23/16 19:10 99.1 113 18 150/72 92 11/23/16 18:25 99.1 113 18 150/72 92 11/23/16 18:05 98.2 120 18 127/73 92 11/23/16 16:00 99.7 120 18 127/73 92 I/O 11/23/16 11/23/16 11/23/16 11/24/16 11/24/16 11/24/16 07:00 15:00 23:00 07:00 15:00 23:00 Intake Total 960 ml 480 ml 240 ml Output Total 650 ml 1300 ml 550 ml 525 ml Balance -650 ml -340 ml -70 ml -285 ml Intake Oral 960 ml 480 ml 240 ml Output Urine Total 650 ml 1300 ml 550 ml 525 ml # Bowel Movements 0 0 0 Result Diagram: 11/24/16 0405 11/24/16 0405 Imaging Last Impressions Femur X-Ray 11/20/16 0000 Signed Impressions: Service Date/Time: November 18:16 - CONCLUSION: Surgical hardware as described above. This all appears well placed. Nigel Goodman MD Chest X-Ray 11/20/16 0000 Signed Impressions: Service Date/Time: November 18:48 - CONCLUSION: Left lower lobe consolidation or atelectasis with an accompanying mild to moderate left pleural effusion. Nigel Goodman MD Other Results Laboratory Tests Test 11/24/16 04:05 White Blood Count 8.1 Red Blood Count 3.28 Hemoglobin 9.8 Hematocrit 28.1 Mean Corpuscular Volume 85.7 Mean Corpuscular Hemoglobin 29.9 Mean Corpuscular Hemoglobin 34.9 Concent Red Cell Distribution Width 14.9 Platelet Count 129 Mean Platelet Volume 8.0 Sodium Level 140 Potassium Level 3.5 Chloride Level 101 Carbon Dioxide Level 31.6 Anion Gap 7 Blood Urea Nitrogen 8 Creatinine 0.62 Estimat Glomerular Filtration 97 Rate Random Glucose 92 Calcium Level 8.0 Date/Time Procedure Status Source Growth 11/24/16 10:25 Stool Occult Blood (TOM) - Final Complete Stool Stool HEMOCCULT NEGATIVE Physical Exam Physical Exam GENERAL: Patient mechanically ventilated, does not appear in any distress SKIN: No rashes, ecchymoses or lesions. Cool and dry. HEAD: Atraumatic. Normocephalic. No temporal or scalp tenderness. EYES: Pupils equal round and reactive. No scleral icterus. No injection or drainage. ENT: Airway patent. NECK: Trachea midline. No JVD or lymphadenopathy. Supple, nontender, no meningeal signs. CARDIOVASCULAR: Regular rate and rhythm without murmurs, gallops, or rubs. RESPIRATORY: Clear to auscultation. Breath sounds equal bilaterally. No wheezes , rales, or rhonchi. GASTROINTESTINAL: Abdomen soft, non-tender, nondistended. No hepato-splenomegaly , or palpable masses. No guarding. MUSCULOSKELETAL: Right leg in canvas splint, dressing to right hip and right thigh, D/I. Pedal pulses 2+ bilaterally. Pretibial edema. NEUROLOGICAL: awake, oriented x 3, grossly normal. A/P Assessment and Plan Urinary Catheter: Yes Amos insert reason: Surgical/Invasive Proced A/P Diagnosis: (1) Respiratory failure (2) Lactic acidosis (3) Postoperative anemia due to acute blood loss (4) Right femoral fracture (5) orif right femur (6) Status post total replacement of right hip (7) Chronic anticoagulation (8) History of atrial fibrillation (9) History of CVA (cerebrovascular accident) Assessment and Plan 61-year-old female admitted for elective right total hip arthroplasty, Intra-Op there was right femur fracture that required ORIF. Patient had significant blood loss, 4-5 L. Patient required mechanical ventilation for respiratory failure. Multiple broad products, PRBC and FFP given. Hemodynamically unstable requiring pressor support Resp. failure -Critical care signed off -ext. 11/21 -stable -Continue duonebs Anemia, post op bleeding -S/P PRBC, FFP transfusion -HH stable 9.8/28.1. Status post trans-fusion November 23 Lactic acidosis, poss. sepsis, poss. PNA LLL consolidation -lactic acid 2.3 now -continue empiric abx -We'll repeat lactic acid tomorrow S/P elective right total hip arthroplasty, Intra-Op there was right femur fracture that required ORIF 11/20 -Post op care Pain management Anticoagulation on hold at this time, follow H&H closely . Will restart today and monitor H&H -SCDs for DVT prophylaxis, anticoagulation when ok per ortho -PT eval per ortho orders, NWB History of CVA, on anticoagulation. Will restart today Monitor History of A. fib, currently sinus rhythm Continuous cardiac telemetry. Monitor rate Protonix for GI prophylaxis SCDs for DVT prophylaxis Labs in am D/W RN Discussed with patient Discussed With: Nurse, Family (patient), Other (Chanel seen on his behalf) Davidson Buchanan MD Nov 24, 2016 15:59
[2016-11-24] MEDS: WARFARIN SOD 2.5 MG TAB PO SCH (17:53)
[2016-11-24] MEDS: SENNOSIDES 8.6 MG TAB PO SCH (21:05)
[2016-11-24] MEDS: traZODone HCL 100 MG TAB PO SCH (21:05)
[2016-11-25 00:19] VITALS: BP 148/93; PULSE 103; RESP 20; TEMP 97.6; O2SAT 96
[2016-11-25] MEDS: CHLORHEXIDINE GLUCONATE 2 % 1 PACK (2 CLOTHS) TOP SCH (04:00)
[2016-11-25 04:19] VITALS: BP 159/88; PULSE 98; RESP 20; TEMP 98.2; O2SAT 95
[2016-11-25] MEDS: ACETAMINOPHEN/HYDROcodone 325 MG/5 MG TAB PO PRN ×4 (05:29→20:28)
[2016-11-25] MEDS: PANTOPRAZOLE SODIUM 40 MG VIAL IV SCH (07:51)
[2016-11-25] MEDS: SODIUM CHLORIDE 0.9% FLUSH 5 ML FLUSH IV FLUSH SCH ×2 (07:51→20:30)
[2016-11-25] MEDS: DOCUSATE SODIUM 100 MG CAP PO SCH ×2 (07:51→20:29)
[2016-11-25] MEDS: MAGNESIUM HYDROXIDE SUSP 30 ML CUP PO SCH (07:52)
[2016-11-25] MEDS: POLYETHYLENE GLYCOL 17 GM PKG PO SCH (07:52)
[2016-11-25 08:20] LABS: HEMATOCRIT 29.7 % (35.0-46.0); MEAN CORPUSCULAR HEMOGLOBIN 29.6 PG (27.0-34.0); MEAN CORPUSCULAR HGB CONC 34.4 % (32.0-36.0); PLATELET COUNT 183 TH/MM3 (150-450); RED BLOOD COUNT 3.46 MIL/MM3 (4.00-5.30); RED CELL DISTRIBUTION WIDTH 14.6 % (11.6-17.2); REVIEW FLAG FINAL; WHITE BLOOD COUNT 7.8 TH/MM3 (4.0-11.0)
[2016-11-25 08:22] VITALS: PULSE 90; RESP 16; TEMP 96.8; O2SAT 96
[2016-11-25] MEDS: LEVOFLOXACIN 750 MG PREMIX INJ 150 ML IV SCH (10:48)
[2016-11-25] MEDS: cefTRIAXone INJ 1,000 MG in SODIUM CHLORIDE 0.9% INJ 100 ML IV SCH (10:48)
--- NOTE | 2016-11-25 12:11 | HHI.PR ---
Subjective Remarks Coughing at times but improving No chest pain No shortness of breath at rest Bruise mild edema left hand, improving non-broken skin Alert, (Cee Rowland) Objective Objective Results - Vital Signs Date Time Temp Pulse Resp B/P Pulse Ox O2 Delivery O2 Flow Rate FiO2 11/25/16 08:22 96.8 90 16 96 11/25/16 04:19 98.2 98 20 159/88 95 11/25/16 00:19 97.6 103 20 148/93 96 11/24/16 20:16 97.9 118 19 119/70 95 11/24/16 16:00 98.8 106 18 160/81 96 11/24/16 13:50 93 11/24/16 12:21 18 I/O 11/24/16 11/24/16 11/24/16 11/25/16 11/25/16 11/25/16 07:00 15:00 23:00 07:00 15:00 23:00 Intake Total 240 ml 720 ml 360 ml 360 ml Output Total 525 ml 1000 ml 550 ml 450 ml Balance -285 ml -280 ml -190 ml -90 ml Intake Oral 240 ml 720 ml 360 ml 360 ml Output Urine Total 525 ml 1000 ml 550 ml 450 ml # Voids 0 # Bowel Movements 0 1 0 0 (Cee Rowland) Result Diagram: 11/25/16 0800 11/24/16 0405 ROS General: Fatigue (mild to moderate. Has not been out of bed) Cardiac: Edema (mild right leg) Pulmonary: Cough (improving random), SOB (none) Skin: Other (splint plan right leg) (Cee Rowland) Physical Exam Physical Exam PHYSICAL EXAMINATION GENERAL: This is a well-developed, well-nourished female who appears to be in no acute distress. She is alert and awake responds readily. HEAD: Normocephalic without any lesion or mass noted. Facial features appear symmetric. OROPHARYNGEAL: Oropharynx without erythema or edema. NECK: Supple. No nuchal rigidity or lymphadenopathy. Trachea midline without deviation. CARDIAC: Regular rhythm, regular rate, S1 and S2 are heard. Murmur none; no gallops or rubs. LUNGS: Clear anteriorly and posteriorly upper [place]. Mild decreased breath sounds in bases, no wheeze, no rhonchi or rale. No use of accessory muscles on inspiration or expiration at rest ABDOMEN: Soft, nontender, no organomegaly or masses. Bowel sounds are heard in all four quadrants. No rebound. No guarding. EXTREMITIES: Mild right leg edema. Pulses equal bilateral. no cyanosis. Full right body splint on, not to be removed NEUROLOGICAL: Patient mood and affect appropriate. No focal deficit SKIN:Warm and moist Objective Remarks I'm doing okay, eating better. I have not been out of the bed (Cee Rowland) A/P Assessment and Plan (1) Respiratory failure (2) Lactic acidosis (3) Postoperative anemia due to acute blood loss (4) Right femoral fracture (5) orif right femur (6) Status post total replacement of right hip (7) Chronic anticoagulation (8) History of atrial fibrillation (9) History of CVA (cerebrovascular accident) 10. Tachycardia. Assessment and Plan 61-year-old female admitted for elective right total hip arthroplasty, Intra-Op there was right femur fracture that required ORIF. Patient had significant blood loss, 4-5 L. Patient required mechanical ventilation for respiratory failure. Multiple broad products, PRBC and FFP given. Hemodynamically unstable requiring pressor support.m now stabilized and now to regular room. Mild tachycardia today, afebrile Resp. failure, resolved -Critical care signed off -stable -Continue duonebs , O2 when necessary, 2 L when necessary. Not wearing most of the time now Anemia, post op bleeding -S/P PRBC, FFP transfusion -HH stable dropped today, 7.7 with symptoms of tachycardia Patient placed on telemetry. Will receive 2 units of blood today, active RBC Labs reviewed this a.m. hemoglobin stable Lactic acidosis, poss. sepsis, poss. PNA LLL consolidation -lactic acid, 2.3, trending down, monitor -continue empiric abx, Rocephin, Levaquin S/P elective right total hip arthroplasty, Intra-Op there was right femur fracture that required ORIF 11/20 -Post op care Pain management Placed back on anticoagulant per Dr. Buchanan on 11-24. Pharmacy to dose -SCDs for DVT prophylaxis, anticoagulation when ok per ortho -PT eval per ortho orders, NWB, out of bed today Not out of bed yet History of CVA, hold anticoagulation for now Monitor History of A. fib, currently sinus rhythm Continuous cardiac telemetry Rhythm tachycardic this a.m. we'll monitor Protonix for GI prophylaxis SCDs for DVT prophylaxis Physical therapy ordered today. Patient is to have right leg splint at all times. She can be out of the bed nonweightbearing right leg D/W RN D/W Dr. Dominguez D/W pt, This patient was seen by myself and Dr. Buchanan, this note is written on his behalf Problem Qualifiers (1) Respiratory failure: Qualified Code: J96.00 - Acute respiratory failure, unspecified whether with hypoxia or hypercapnia (2) Right femoral fracture: Discussed With: Nurse, Family (patient), Other (Alberto, seen on her behalf) ( Cee Rowland) Assessment and Plan Patient seen and examined H & H stable coumadin restarted monitor daily labs CBC and INR monitor for bleeding continue antibiotics discussed with patient discussed with Cee HORVATH (Aleida Dominguez MD) Cee Rowland Nov 25, 2016 12:11 Aleida Dominguez MD Nov 25, 2016 14:32
--- NOTE | 2016-11-25 13:05 | PD.ORT.PN ---
Subjective Post Op Day #: 5 Subjective Remarks Patient feels better and up in chair today. Feeling in right foot is improved and plantar flexon strength improving. There is a flicker of toe dorsiflexion today. Objective Vitals Vital Signs Date Time Temp Pulse Resp B/P Pulse Ox O2 Delivery O2 Flow Rate FiO2 11/25/16 12:01 18 11/25/16 08:22 96.8 90 16 96 11/25/16 04:19 98.2 98 20 159/88 95 11/25/16 00:19 97.6 103 20 148/93 96 11/24/16 20:16 97.9 118 19 119/70 95 11/24/16 16:00 98.8 106 18 160/81 96 11/24/16 13:50 93 I/O 11/24/16 11/24/16 11/24/16 11/25/16 11/25/16 11/25/16 07:00 15:00 23:00 07:00 15:00 23:00 Intake Total 240 ml 720 ml 360 ml 360 ml Output Total 525 ml 1000 ml 550 ml 450 ml Balance -285 ml -280 ml -190 ml -90 ml Intake Oral 240 ml 720 ml 360 ml 360 ml Output Urine Total 525 ml 1000 ml 550 ml 450 ml # Voids 0 # Bowel Movements 0 1 0 0 Result Diagram: 11/25/16 0800 11/24/16 0405 Other Results Laboratory Tests Test 11/25/16 08:00 Prothrombin Time 11.0 SEC (9.8-11.6) Prothromb Time International 1.0 RATIO Ratio Objective Remarks Patient has had dressing changed today by nurse and new dressing has been applied. Several blisters from tape have been treated. Assessment & Plan Ortho Post Op Day #: 5 Problem List: (1) Status post total replacement of right hip (2) Right femoral fracture (3) orif right femur Assessment and Plan Patient is improving. Continue rehab and will continue canvas knee splint at all times. Pt has brace on ankle and foot. Anticipate Discharge to rehab facility possibly later this week. Srinath Barreto MD Nov 25, 2016 13:04
[2016-11-25 16:00] VITALS: BP 132/85; PULSE 83; RESP 16; TEMP 97.4; O2SAT 98
[2016-11-25] MEDS: WARFARIN SOD 2.5 MG TAB PO SCH (16:18)
[2016-11-25 20:19] VITALS: BP 143/68; PULSE 89; RESP 18; TEMP 97.1; O2SAT 95
[2016-11-25] MEDS: SENNOSIDES 8.6 MG TAB PO SCH (20:29)
[2016-11-25] MEDS: traZODone HCL 100 MG TAB PO SCH (20:29)
[2016-11-26] VITALS (8 sets, daily range): BP systolic 120–183; BP diastolic 64–76; PULSE 80–108; RESP 16–20; TEMP 95.8–99; O2SAT 93–98
[2016-11-26] MEDS: ACETAMINOPHEN/HYDROcodone 325 MG/5 MG TAB PO PRN ×4 (02:27→17:50)
[2016-11-26] MEDS: CHLORHEXIDINE GLUCONATE 2 % 1 PACK (2 CLOTHS) TOP SCH ×2 (03:55→22:21)
[2016-11-26 08:21] LABS: INTERNATIONAL NORMALIZED RATIO 1.2 RATIO; PROTHROMBIN TIME - PATIENT 13.9 SEC (9.8-11.6)
[2016-11-26 08:23] LABS: AUTOMATED NEUTROPHIL # 4.8 TH/MM3 (1.8-7.7); BASOPHIL % 0.5 % (0.0-2.0); EOSINOPHIL # 0.3 TH/MM3 (0-0.4); EOSINOPHIL % 4.1 % (0.0-4.0); HEMATOCRIT 29.3 % (35.0-46.0); HEMO FLAGS DIFF FINAL; LYMPH % 10.8 % (9.0-44.0); LYMPHOCYTE # 0.7 TH/MM3 (1.0-4.8); MEAN CORPUSCULAR HEMOGLOBIN 30.3 PG (27.0-34.0); MEAN CORPUSCULAR HGB CONC 35.3 % (32.0-36.0); MONO % 14.3 % (0.0-8.0); NEUT % 70.3 % (16.0-70.0); PLATELET COUNT 237 TH/MM3 (150-450); RED BLOOD COUNT 3.41 MIL/MM3 (4.00-5.30); RED CELL DISTRIBUTION WIDTH 14.4 % (11.6-17.2); WHITE BLOOD COUNT 6.9 TH/MM3 (4.0-11.0)
[2016-11-26 08:36] LABS: BICARBONATE 30.1 MEQ/L (21.0-32.0); POTASSIUM 3.5 MEQ/L (3.5-5.1)
[2016-11-26] MEDS: SODIUM CHLORIDE 0.9% FLUSH 5 ML FLUSH IV FLUSH SCH ×2 (08:47→22:21)
[2016-11-26] MEDS: PANTOPRAZOLE SODIUM 40 MG VIAL IV SCH (08:47)
[2016-11-26] MEDS: DOCUSATE SODIUM 100 MG CAP PO SCH ×2 (08:47→22:21)
[2016-11-26] MEDS: POLYETHYLENE GLYCOL 17 GM PKG PO SCH (08:48)
[2016-11-26] MEDS: MAGNESIUM HYDROXIDE SUSP 30 ML CUP PO SCH (08:48)
[2016-11-26] MEDS: LEVOFLOXACIN 750 MG PREMIX INJ 150 ML IV SCH (10:53)
[2016-11-26] MEDS: cefTRIAXone INJ 1,000 MG in SODIUM CHLORIDE 0.9% INJ 100 ML IV SCH (10:55)
--- NOTE | 2016-11-26 12:55 | HHI.PR ---
Subjective Remarks improved sensation right foot, able to dorsiflex no fever n/v right now no cp no sob has ramirez no abd. pain no bleeding has been OOB (Rosa Marie) Objective Objective Results - Vital Signs Date Time Temp Pulse Resp B/P Pulse Ox O2 Delivery O2 Flow Rate FiO2 11/26/16 11:54 98.3 80 16 144/64 98 11/26/16 10:22 83 147/67 11/26/16 08:41 20 11/26/16 08:00 95.8 80 16 183/76 93 11/26/16 04:09 97.8 87 19 154/75 95 11/26/16 00:10 99.0 104 19 156/72 94 11/25/16 20:19 97.1 89 18 143/68 95 11/25/16 17:18 18 11/25/16 16:00 97.4 83 16 132/85 98 I/O 11/25/16 11/25/16 11/25/16 11/26/16 11/26/16 11/26/16 07:00 15:00 23:00 07:00 15:00 23:00 Intake Total 360 ml 1080 ml 720 ml 240 ml Output Total 450 ml 1000 ml 900 ml 350 ml Balance -90 ml 80 ml -180 ml -110 ml Intake Oral 360 ml 1080 ml 720 ml 240 ml Output Urine Total 450 ml 1000 ml 900 ml 350 ml # Bowel Movements 0 0 0 (Rosa Marie) Result Diagram: 11/26/16 0755 11/26/16 0755 Imaging Last Impressions Femur X-Ray 11/20/16 0000 Signed Impressions: Service Date/Time: November 18:16 - CONCLUSION: Surgical hardware as described above. This all appears well placed. Nigel Goodman MD Chest X-Ray 11/20/16 0000 Signed Impressions: Service Date/Time: November 18:48 - CONCLUSION: Left lower lobe consolidation or atelectasis with an accompanying mild to moderate left pleural effusion. Nigel Goodman MD Other Results Laboratory Tests Test 11/26/16 07:55 White Blood Count 6.9 Red Blood Count 3.41 Hemoglobin 10.3 Hematocrit 29.3 Mean Corpuscular Volume 86.0 Mean Corpuscular Hemoglobin 30.3 Mean Corpuscular Hemoglobin 35.3 Concent Red Cell Distribution Width 14.4 Platelet Count 237 Mean Platelet Volume 8.0 Neutrophils (%) (Auto) 70.3 Lymphocytes (%) (Auto) 10.8 Monocytes (%) (Auto) 14.3 Eosinophils (%) (Auto) 4.1 Basophils (%) (Auto) 0.5 Neutrophils # (Auto) 4.8 Lymphocytes # (Auto) 0.7 Monocytes # (Auto) 1.0 Eosinophils # (Auto) 0.3 Basophils # (Auto) 0.0 CBC Comment DIFF FINAL Differential Comment Prothrombin Time 13.9 Prothromb Time International 1.2 Ratio Sodium Level 141 Potassium Level 3.5 Chloride Level 105 Carbon Dioxide Level 30.1 Anion Gap 6 Blood Urea Nitrogen 9 Creatinine 0.59 Estimat Glomerular Filtration 103 Rate Random Glucose 98 Calcium Level 8.4 Date/Time Procedure Status Source Growth 11/24/16 10:25 Stool Occult Blood (TOM) - Final Complete Stool Stool HEMOCCULT NEGATIVE (Rosa Marie) ROS General: Weakness HEENT: No: Sore Throat, Dysphagia Cardiac: No: Chest Pain, Edema, Palpitations Pulmonary: No: Cough, SOB, Wheezing GI: N/V /APRON WORKER: No: Dysuria, Urgency Neuro/MS: No: Lightheaded, Confusion Psych: No: Anxiety, Depression Skin: No: Itching, Rash (Rosa Marie) Physical Exam Physical Exam GENERAL: Patient well developed, well nourished, no distress SKIN: No rashes, ecchymoses or lesions. Cool and dry. HEAD: Atraumatic. Normocephalic. No temporal or scalp tenderness. EYES: Pupils equal round and reactive. No scleral icterus. No injection or drainage. ENT: Nose without bleeding, purulent drainage or septal hematoma. Throat without erythema, tonsillar hypertrophy or exudate. Uvula midline. Airway patent. NECK: Trachea midline. No JVD or lymphadenopathy. Supple, nontender, no meningeal signs. CARDIOVASCULAR: Regular rate and rhythm without murmurs, gallops, or rubs. RESPIRATORY: Clear to auscultation diminished at bases. Breath sounds equal bilaterally. No wheezes, rales, or rhonchi. GASTROINTESTINAL: Abdomen soft, non-tender, nondistended. No hepato-splenomegaly , or palpable masses. No guarding. MUSCULOSKELETAL: Right leg in canvas splint, dressing to right hip and right thigh, D/I. Pedal pulses 2+ bilaterally. Pretibial edema. NEUROLOGICAL: awake, oriented x 3, grossly normal. (FrankRosabahman HORVATH) Urinary Catheter: Yes Assessment to: Remove (Rosa Marie) Vascular Central Line Catheter: No (Rosa Marie) A/P Diagnosis: (1) Respiratory failure (2) Lactic acidosis (3) Postoperative anemia due to acute blood loss (4) Right femoral fracture (5) orif right femur (6) Status post total replacement of right hip (7) Chronic anticoagulation (8) History of atrial fibrillation (9) History of CVA (cerebrovascular accident) Assessment and Plan 61-year-old female admitted for elective right total hip arthroplasty, Intra-Op there was right femur fracture that required ORIF. Patient had significant blood loss, 4-5 L. Patient required mechanical ventilation for respiratory failure. Multiple blood products, PRBC and FFP given. Hemodynamically unstable initially required pressor support. Extubated Resp. failure, resolved -Critical care signed off -stable -Continue duonebs , O2 when necessary Anemia, post op bleeding -S/P PRBC, FFP transfusion -HH stable dropped today, 7.7 with symptoms of tachycardia 11/23. HH stable now Lactic acidosis, poss. sepsis, poss. PNA LLL consolidation -continue empiric abx, Rocephin, Levaquin -stable S/P elective right total hip arthroplasty, Intra-Op there was right femur fracture that required ORIF 11/20 -Post op care Pain management Placed back on anticoagulant per Dr. Buchanan on 11-24. Pharmacy to dose -SCDs for DVT prophylaxis, anticoagulation when ok per ortho -PT eval per ortho orders, NWB, out of bed today Not out of bed yet History of CVA -stable, continue Coumadin History of A. fib, currently sinus rhythm Continuous cardiac telemetry -Resume Coumadin, follow INR, 1.2 Protonix for GI prophylaxis SCDs for DVT prophylaxis PT per ortho VIGNESH ramirez hopefully to rehab later this week D/W RN D/W Dr. Dominguez D/W pt, This patient was seen by myself and Dr. Dominguez, this note is written on his behalf Discussed With: Nurse, Family (patient), Other (Alberto, seen on her behalf) ( Rosa Marie) Assessment and Plan patient seen and examined complaining of nausea on coumadin INR 1.2 H& H stable no fever, no leucocytosis d/c rocephin continue LVQ possible discharge later this week discussed with patient discussed with Rosa HORVATH (Aleida Dominguez MD) Problem Qualifiers (1) Respiratory failure: Qualified Code: J96.00 - Acute respiratory failure, unspecified whether with hypoxia or hypercapnia (2) Right femoral fracture: Rosa Marie Nov 26, 2016 12:55 Aleida Dominguez MD Nov 26, 2016 14:12
[2016-11-26] MEDS ORDERED: POTASSIUM CL 40 MEQ/30 ML LIQ UDC PO ONE (15:00)
[2016-11-26] MEDS: WARFARIN SOD 2.5 MG TAB PO SCH (16:02)
[2016-11-26] MEDS: SENNOSIDES 8.6 MG TAB PO SCH (22:21)
[2016-11-26] MEDS: traZODone HCL 100 MG TAB PO SCH (22:21)
[2016-11-27] VITALS (8 sets, daily range): BP systolic 130–146; BP diastolic 70–87; PULSE 78–94; RESP 16–20; TEMP 96–99.1; O2SAT 93–98
[2016-11-27] MEDS: ACETAMINOPHEN/HYDROcodone 325 MG/5 MG TAB PO PRN ×4 (06:32→20:57)
[2016-11-27 07:11] LABS: INTERNATIONAL NORMALIZED RATIO 1.9 RATIO; PROTHROMBIN TIME - PATIENT 21.4 SEC (9.8-11.6)
[2016-11-27] MEDS: MAGNESIUM HYDROXIDE SUSP 30 ML CUP PO SCH ×2 (09:00→10:00)
[2016-11-27] MEDS: POLYETHYLENE GLYCOL 17 GM PKG PO SCH (10:00)
[2016-11-27] MEDS: DOCUSATE SODIUM 100 MG CAP PO SCH ×2 (10:00→20:55)
[2016-11-27] MEDS: SODIUM CHLORIDE 0.9% FLUSH 5 ML FLUSH IV FLUSH SCH ×2 (10:01→20:58)
[2016-11-27] MEDS: PANTOPRAZOLE SODIUM 40 MG VIAL IV SCH (10:01)
--- NOTE | 2016-11-27 12:32 | HHI.PR ---
Subjective Remarks sitting up in commode had BM pain well controlled no cp no sob no fever right leg with incision, has fluid filled blisters x 3, some bruising, serous drainage right leg edema Objective Objective Results - Vital Signs Date Time Temp Pulse Resp B/P Pulse Ox O2 Delivery O2 Flow Rate FiO2 11/27/16 08:05 84 11/27/16 08:00 97.5 88 18 140/76 93 11/27/16 07:22 Room Air 11/27/16 04:11 99.1 94 18 145/75 94 11/27/16 00:16 Nasal Cannula 2.00 11/27/16 00:16 98.7 91 19 132/75 95 11/26/16 20:15 97.8 108 20 120/72 97 11/26/16 20:15 Nasal Cannula 2.00 11/26/16 19:30 94 11/26/16 15:23 98.8 95 17 127/68 96 11/26/16 14:07 20 I/O 11/26/16 11/26/16 11/26/16 11/27/16 11/27/16 11/27/16 07:00 15:00 23:00 07:00 15:00 23:00 Intake Total 240 ml 480 ml 240 ml Output Total 350 ml 300 ml Balance -110 ml 180 ml 240 ml Intake Oral 240 ml 480 ml 240 ml Output Urine Total 350 ml 300 ml # Voids 2 1 # Bowel Movements 0 1 0 Result Diagram: 11/26/16 0755 11/26/16 0755 Imaging Last Impressions Femur X-Ray 11/20/16 0000 Signed Impressions: Service Date/Time: November 18:16 - CONCLUSION: Surgical hardware as described above. This all appears well placed. Nigel Goodman MD Chest X-Ray 11/20/16 0000 Signed Impressions: Service Date/Time: November 18:48 - CONCLUSION: Left lower lobe consolidation or atelectasis with an accompanying mild to moderate left pleural effusion. Nigel Goodman MD Other Results Laboratory Tests Test 11/26/16 11/27/16 15:49 06:35 Lactic Acid Level 0.8 Prothrombin Time 21.4 Prothromb Time International 1.9 Ratio Date/Time Procedure Status Source Growth 11/24/16 10:25 Stool Occult Blood (TOM) - Final Complete Stool Stool HEMOCCULT NEGATIVE ROS General: No: Fatigue, Weakness HEENT: No: Sore Throat, Dysphagia Cardiac: No: Chest Pain, Edema, Palpitations Pulmonary: No: Cough, SOB, Wheezing GI: No: Abdominal Pain, BM, Diarrhea, N/V /PEARLER: No: Dysuria, Urgency Neuro/MS: Other (right leg pain ), No: Lightheaded, Confusion Psych: No: Anxiety, Depression Skin: No: Itching, Rash Physical Exam Physical Exam GENERAL: Patient well developed, well nourished, no distress SKIN: No rashes, ecchymoses or lesions. Cool and dry. HEAD: Atraumatic. Normocephalic. No temporal or scalp tenderness. EYES: Pupils equal round and reactive. No scleral icterus. No injection or drainage. ENT: Nose without bleeding, purulent drainage or septal hematoma. Throat without erythema, tonsillar hypertrophy or exudate. Uvula midline. Airway patent. NECK: Trachea midline. No JVD or lymphadenopathy. Supple, nontender, no meningeal signs. CARDIOVASCULAR: Regular rate and rhythm without murmurs, gallops, or rubs. RESPIRATORY: Clear to auscultation diminished at bases. Breath sounds equal bilaterally. No wheezes, rales, or rhonchi. GASTROINTESTINAL: Abdomen soft, non-tender, nondistended. No hepato-splenomegaly , or palpable masses. No guarding. MUSCULOSKELETAL: Right leg in canvas splint, right leg incision with bruising, fluid filled blisters, minimal serous drainage. Pedal pulses 2+ bilaterally. Right leg edema, trace to LLE. NEUROLOGICAL: awake, oriented x 3, grossly normal. Urinary Catheter: No Vascular Central Line Catheter: Yes Line: Central Venous Catheter A/P Diagnosis: (1) Respiratory failure (2) Lactic acidosis (3) Postoperative anemia due to acute blood loss (4) Right femoral fracture (5) orif right femur (6) Status post total replacement of right hip (7) Chronic anticoagulation (8) History of atrial fibrillation (9) History of CVA (cerebrovascular accident) Assessment and Plan 61-year-old female admitted for elective right total hip arthroplasty, Intra-Op there was right femur fracture that required ORIF. Patient had significant blood loss, 4-5 L. Patient required mechanical ventilation for respiratory failure. Multiple blood products, PRBC and FFP given. Hemodynamically unstable initially required pressor support. Extubated Resp. failure, resolved -Critical care signed off -stable -Continue duonebs , O2 when necessary Anemia, post op bleeding -S/P PRBC, FFP transfusion -HH stable dropped today, 7.7 with symptoms of tachycardia 11/23. HH stable now Lactic acidosis, poss. sepsis, poss. PNA LLL consolidation -continue empiric abx, Rocephin, Levaquin -stable S/P elective right total hip arthroplasty, Intra-Op there was right femur fracture that required ORIF 11/20 -Post op care Pain management Placed back on anticoagulant per Dr. Buchanan on 11-24. Pharmacy to dose -SCDs for DVT prophylaxis, anticoagulation when ok per ortho -PT eval per ortho orders, NWB, out of bed today Not out of bed yet History of CVA -stable, continue Coumadin History of A. fib, currently sinus rhythm Continuous cardiac telemetry -Continue Coumadin, follow INR, 1.9 Protonix for GI prophylaxis SCDs for DVT prophylaxis PT per ortho hopefully to rehab later this week when ok by ortho D/W RN D/W Dr. Dominguez D/W pt, This patient was seen by myself and Dr. Dominguez, this note is written on his behalf Discussed With: Nurse, Family (patient), Other (Alberto, seen on her behalf) Problem Qualifiers (1) Respiratory failure: Qualified Code: J96.00 - Acute respiratory failure, unspecified whether with hypoxia or hypercapnia (2) Right femoral fracture: Rosa Marie Nov 27, 2016 12:32
--- NOTE | 2016-11-27 12:42 | HHI.DCPOC ---
Discharge Care Plan Diagnosis: (1) Lactic acidosis (2) Respiratory failure (3) Chronic anticoagulation (4) Postoperative anemia due to acute blood loss (5) History of atrial fibrillation (6) History of CVA (cerebrovascular accident) (7) Right femoral fracture (8) orif right femur (9) Status post total replacement of right hip Your Health Problems Are: Inflammation Swelling Leg Swelling Goals to Promote Your Health * To prevent worsening of your condition and complications * To maintain your health at the optimal level Directions to Meet Your Goals Take your medications as prescribed Follow your dietary instruction Follow activity as directed Keep your appointments as scheduled Take your immunizations and boosters as scheduled If your symptoms worsen call your PCP, if no PCP go to Urgent Care Center or Emergency Room Smoking is Dangerous to Your Health. Avoid second hand smoke Call the 24-hour hour crisis hotline for domestic abuse at Rosa Marie Nov 27, 2016 12:42
[2016-11-27] MEDS: LEVOFLOXACIN 750 MG PREMIX INJ 150 ML IV SCH (13:08)
[2016-11-27] MEDS: WARFARIN SOD 2.5 MG TAB PO SCH (16:10)
[2016-11-27] MEDS: SENNOSIDES 8.6 MG TAB PO SCH (20:55)
[2016-11-27] MEDS: traZODone HCL 100 MG TAB PO SCH (20:55)
[2016-11-28] VITALS (8 sets, daily range): BP systolic 126–142; BP diastolic 68–84; PULSE 81–97; RESP 18–22; TEMP 96.9–98.4; O2SAT 94–99
[2016-11-28] MEDS: ACETAMINOPHEN/HYDROcodone 325 MG/5 MG TAB PO PRN ×4 (03:05→22:56)
[2016-11-28] MEDS: CHLORHEXIDINE GLUCONATE 2 % 1 PACK (2 CLOTHS) TOP SCH (04:00)
[2016-11-28 06:19] LABS: INTERNATIONAL NORMALIZED RATIO 2.3 RATIO; PROTHROMBIN TIME - PATIENT 26.8 SEC (9.8-11.6)
[2016-11-28] MEDS: DOCUSATE SODIUM 100 MG CAP PO SCH ×2 (08:28→19:54)
[2016-11-28] MEDS: PANTOPRAZOLE SODIUM 40 MG VIAL IV SCH (08:29)
[2016-11-28] MEDS: MAGNESIUM HYDROXIDE SUSP 30 ML CUP PO SCH (08:29)
[2016-11-28] MEDS: POLYETHYLENE GLYCOL 17 GM PKG PO SCH (08:29)
[2016-11-28] MEDS: SODIUM CHLORIDE 0.9% FLUSH 5 ML FLUSH IV FLUSH SCH ×2 (08:30→19:55)
[2016-11-28] MEDS: LEVOFLOXACIN 750 MG PREMIX INJ 150 ML IV SCH (11:00)
--- NOTE | 2016-11-28 13:55 | HHI.PR ---
Subjective Remarks right leg incision improving in appearance, only one blister less erythema no fever no cp no sob no n/v Objective Objective Results - Vital Signs Date Time Temp Pulse Resp B/P Pulse Ox O2 Delivery O2 Flow Rate FiO2 11/28/16 08:00 97.0 86 18 142/84 94 11/28/16 04:00 96.9 87 20 137/74 97 11/28/16 00:00 98.4 81 18 126/73 94 11/27/16 20:33 78 11/27/16 20:00 98.6 88 20 140/70 98 11/27/16 16:30 98.2 84 16 130/77 97 I/O 11/27/16 11/27/16 11/27/16 11/28/16 11/28/16 11/28/16 07:00 15:00 23:00 07:00 15:00 23:00 Intake Total 240 ml 240 ml 720 ml 240 ml Balance 240 ml 240 ml 720 ml 240 ml Intake Oral 240 ml 240 ml 720 ml 240 ml # Voids 1 3 2 2 # Bowel Movements 0 0 0 0 Result Diagram: 11/26/16 0755 11/26/16 0755 Imaging Last Impressions Femur X-Ray 11/20/16 0000 Signed Impressions: Service Date/Time: November 18:16 - CONCLUSION: Surgical hardware as described above. This all appears well placed. Nigel Goodman MD Chest X-Ray 11/20/16 0000 Signed Impressions: Service Date/Time: November 18:48 - CONCLUSION: Left lower lobe consolidation or atelectasis with an accompanying mild to moderate left pleural effusion. Nigel Goodman MD Other Results Laboratory Tests Test 11/28/16 05:50 Prothrombin Time 26.8 Prothromb Time International 2.3 Ratio Date/Time Procedure Status Source Growth 11/24/16 10:25 Stool Occult Blood (TOM) - Final Complete Stool Stool HEMOCCULT NEGATIVE ROS General: No: Fatigue, Weakness HEENT: No: Sore Throat, Dysphagia Cardiac: No: Chest Pain, Edema, Palpitations Pulmonary: No: Cough, SOB, Wheezing GI: No: Abdominal Pain, BM, Diarrhea, N/V /[employer]: No: Dysuria, Urgency Neuro/MS: Other (right leg pain ) Psych: No: Anxiety, Depression Skin: No: Itching, Rash Physical Exam Physical Exam GENERAL: Patient well developed, well nourished, no distress SKIN: No rashes, ecchymoses or lesions. Cool and dry. HEAD: Atraumatic. Normocephalic. No temporal or scalp tenderness. EYES: Pupils equal round and reactive. No scleral icterus. No injection or drainage. ENT: Nose without bleeding, purulent drainage or septal hematoma. Throat without erythema, tonsillar hypertrophy or exudate. Uvula midline. Airway patent. NECK: Trachea midline. No JVD or lymphadenopathy. Supple, nontender, no meningeal signs. CARDIOVASCULAR: Regular rate and rhythm without murmurs, gallops, or rubs. RESPIRATORY: Clear to auscultation diminished at bases. Breath sounds equal bilaterally. No wheezes, rales, or rhonchi. GASTROINTESTINAL: Abdomen soft, non-tender, nondistended. No hepato-splenomegaly , or palpable masses. No guarding. MUSCULOSKELETAL: Right leg in canvas splint, right leg incision with bruising, less fluid filled blisters, drying out, scant serous drainage. Pedal pulses 2+ bilaterally. Right leg edema, trace to LLE. NEUROLOGICAL: awake, oriented x 3, grossly normal. Urinary Catheter: No Vascular Central Line Catheter: Yes Line: Central Venous Catheter A/P Diagnosis: (1) Respiratory failure (2) Lactic acidosis (3) Postoperative anemia due to acute blood loss (4) Right femoral fracture (5) orif right femur (6) Status post total replacement of right hip (7) Chronic anticoagulation (8) History of atrial fibrillation (9) History of CVA (cerebrovascular accident) Assessment and Plan 61-year-old female admitted for elective right total hip arthroplasty, Intra-Op there was right femur fracture that required ORIF. Patient had significant blood loss, 4-5 L. Patient required mechanical ventilation for respiratory failure. Multiple blood products, PRBC and FFP given. Hemodynamically unstable initially required pressor support. Extubated Resp. failure, resolved -Critical care signed off -stable -Continue duonebs , O2 when necessary Anemia, post op bleeding -S/P PRBC, FFP transfusion -HH stable dropped today, 7.7 with symptoms of tachycardia 11/23. HH stable now Lactic acidosis, poss. sepsis, poss. PNA LLL consolidation -continue empiric abx, Rocephin, Levaquin -stable S/P elective right total hip arthroplasty, Intra-Op there was right femur fracture that required ORIF 11/20 -Post op care Pain management History of CVA -stable, continue Coumadin History of A. fib, currently sinus rhythm Continuous cardiac telemetry -Continue Coumadin, follow INR, 2.3 Protonix for GI prophylaxis SCDs for DVT prophylaxis PT per ortho stable, no bleeding, progressing well with PT clear for discharge to SNF D/W RN D/W Dr. Dominguez D/W pt, D/W CM This patient was seen by myself and Dr. Dominguez, this note is written on his behalf Discussed With: Nurse, Family (patient), Other (Alberto, seen on her behalf) Problem Qualifiers (1) Respiratory failure: Qualified Code: J96.00 - Acute respiratory failure, unspecified whether with hypoxia or hypercapnia (2) Right femoral fracture: Rosa Marie Nov 28, 2016 13:55
--- NOTE | 2016-11-28 14:15 | HHI.DS ---
Discharge Summary Admission Date Nov 20, 2016 at 10:34 Discharge Date: Nov 28, 2016 Admitting Diagnosis Osteoarthritis Right Hip Diagnosis: (1) Status post total replacement of right hip (2) Right femoral fracture (3) orif right femur Brief History This is a 61 year old female patient with history of progressive osteoarthritis of the right hip. The patient had a prior left total hip arthroplasty and right total knee arthroplasty. She has a remote history of a right sided stroke. CBC/BMP: 11/26/16 0755 11/26/16 0755 Significant Findings Laboratory Tests Test 11/26/16 11/27/16 11/28/16 07:55 06:35 05:50 Red Blood Count 3.41 MIL/MM3 (4.00-5.30) Hemoglobin 10.3 GM/DL (11.6-15.3) Hematocrit 29.3 % (35.0-46.0) Neutrophils (%) (Auto) 70.3 % (16.0-70.0) Monocytes (%) (Auto) 14.3 % (0.0-8.0) Eosinophils (%) (Auto) 4.1 % (0.0-4.0) Lymphocytes # (Auto) 0.7 TH/MM3 (1.0-4.8) Monocytes # (Auto) 1.0 TH/MM3 (0-0.9) Prothrombin Time 13.9 SEC 21.4 SEC 26.8 SEC (9.8-11.6) (9.8-11.6) (9.8-11.6) Calcium Level 8.4 MG/DL (8.5-10.1) PE at Discharge Patient has had dressing changed today by nurse and new dressing has been applied. Several blisters from tape have been treated. Swelling in right thigh is improving. Patient has im[proved plantar flexion and has some dorsiflexion of right ankle returning. Hospital Course Patient was admitted ti ICU following surgery. She stabilized and was subsequently transferred to the Ortho floor. She has been getting physical therapy and is improving and she is non-weight bearing ion the right side with a canvas knee splint. She is having an AFO applied. Pt Condition on Discharge: Good Discharge Disposition: Discharge to SNF Discharge Instructions Diet Instructions: As Tolerated, No Restrictions Activities You Can Perform: Non Weight Bearing Activities to Avoid: Weight Bearing Srinath Barreto MD Nov 28, 2016 14:15
[2016-11-28] MEDS ORDERED: OXYC1TAB63 PO (15:19)
[2016-11-28] MEDS ORDERED: HYDR-3516 PO (15:20)
[2016-11-28] MEDS ORDERED: WARFARIN SOD 1 MG TAB PO SCH (16:00)
[2016-11-28] MEDS: SENNOSIDES 8.6 MG TAB PO SCH (19:54)
[2016-11-28] MEDS: traZODone HCL 100 MG TAB PO SCH (19:55)
[2016-11-29] VITALS: BP 129/73; PULSE 85; RESP 20; TEMP 98.6; O2SAT 97
[2016-11-29 04:00] VITALS: BP 129/68; PULSE 85; RESP 20; TEMP 98.1; O2SAT 97
[2016-11-29] MEDS: CHLORHEXIDINE GLUCONATE 2 % 1 PACK (2 CLOTHS) TOP SCH (04:00)
[2016-11-29] MEDS: ACETAMINOPHEN/HYDROcodone 325 MG/5 MG TAB PO PRN ×2 (04:23→09:51)
[2016-11-29 07:25] LABS: INTERNATIONAL NORMALIZED RATIO 2.5 RATIO; PROTHROMBIN TIME - PATIENT 28.8 SEC (9.8-11.6)
[2016-11-29 08:00] VITALS: BP 158/69; PULSE 89; RESP 18; TEMP 97.3; O2SAT 98
[2016-11-29] MEDS: POLYETHYLENE GLYCOL 17 GM PKG PO SCH (09:49)
[2016-11-29] MEDS: DOCUSATE SODIUM 100 MG CAP PO SCH (09:49)
[2016-11-29] MEDS: MAGNESIUM HYDROXIDE SUSP 30 ML CUP PO SCH (09:49)
[2016-11-29] MEDS: SODIUM CHLORIDE 0.9% FLUSH 5 ML FLUSH IV FLUSH SCH (09:50)
[2016-11-29] MEDS: PANTOPRAZOLE SODIUM 40 MG VIAL IV SCH ×2 (09:51→09:54)
[2016-11-29 10:11] VITALS: O2SAT 96
--- NOTE | 2016-11-29 12:52 | HHI.PR ---
Subjective Remarks Up in chair this a.m. No chest pain No shortness of breath at rest, still small cough but not continuous. Improved. Bruise mild edema left hand, improving non-broken skin Alert, Appetite fair to good Objective Objective Results - Vital Signs Date Time Temp Pulse Resp B/P Pulse Ox O2 Delivery O2 Flow Rate FiO2 11/29/16 10:11 96 21 11/29/16 09:53 Room Air 2.00 21 11/29/16 08:00 97.3 89 18 158/69 98 11/29/16 04:00 98.1 85 20 129/68 97 11/29/16 00:00 98.6 85 20 129/73 97 11/28/16 20:00 97.2 84 22 142/73 99 11/28/16 19:42 89 11/28/16 18:20 94 21 11/28/16 14:25 94 21 I/O 11/28/16 11/28/16 11/28/16 11/29/16 11/29/16 11/29/16 07:00 15:00 23:00 07:00 15:00 23:00 Intake Total 240 ml 480 ml 420 ml 240 ml Balance 240 ml 480 ml 420 ml 240 ml Intake Oral 240 ml 480 ml 420 ml 240 ml # Voids 2 4 2 2 # Bowel Movements 0 0 0 0 Result Diagram: 11/26/16 0755 11/26/16 0755 Other Results Last Impressions Chest X-Ray 11/22/16 0000 Signed Impressions: Service Date/Time: Tuesday, November 22, 2016 10:56 - CONCLUSION: 1. Improving left base consolidation. 2. Mild right base atelectasis has developed. 3. Endotracheal tube out. Nigel Ramon MD Femur X-Ray 11/20/16 0000 Signed Impressions: Service Date/Time: November 18:16 - CONCLUSION: Surgical hardware as described above. This all appears well placed. Nigel Goodman MD Medications and IVs Active Medications Warfarin Sodium (Coumadin) 1.5 mg DAILY@16 PO Last administered on 11/28/16t 15: 06; Admin Dose 1.5 MG; Start 11/28/16 at 16:00 ROS General: Fatigue, Weakness (generalized), Other (10 point ROS done. Right leg witgh total splint. Nonweightbearing) Pulmonary: Cough (occasional) GI: BM (today) Neuro/MS: Other (status post right hip arthroplasty, soreness with movement) Physical Exam Physical Exam PHYSICAL EXAMINATION GENERAL: This is a well-developed, well-nourished female who appears to be in no acute distress. She is alert and awake, tires easily HEAD: Normocephalic without any lesion or mass noted. Facial features appear symmetric. OROPHARYNGEAL: Oropharynx without erythema or edema. NECK: Supple. No nuchal rigidity or lymphadenopathy. Trachea midline without deviation. CARDIAC: Regular rhythm, regular rate, S1 and S2 are heard. Murmur none; no gallops or rubs. LUNGS: Clear to auscultation bilaterally except for some decreased breath sounds in bases. No wheeze, no rhonchi or rale. No use of accessory muscles on inspiration or expiration at rest ABDOMEN: Soft, nontender, no organomegaly or masses. Bowel sounds are heard in all four quadrants. No rebound. No guarding. BM Today EXTREMITIES: Mild right hip edema. Dressing clean dry and intact. Pulses equal bilateral. No cyanosis., Full leg splint on right leg NEUROLOGICAL: Patient mood and affect appropriate. No focal deficit SKIN:Warm and moist, pale Objective Remarks I got up in the chair today. Still gets tired easily, but getting better. A/P Assessment and Plan (1) Respiratory failure (2) Lactic acidosis (3) Postoperative anemia due to acute blood loss (4) Right femoral fracture (5) orif right femur (6) Status post total replacement of right hip (7) Chronic anticoagulation (8) History of atrial fibrillation (9) History of CVA (cerebrovascular accident) 10. Tachycardia. Assessment and Plan 61-year-old female admitted for elective right total hip arthroplasty, Intra-Op there was right femur fracture that required ORIF. Patient had significant blood loss, 4-5 L. Patient required mechanical ventilation for respiratory failure. Multiple broad products, PRBC and FFP given. Hemodynamically unstable requiring pressor support.m now stabilized and now to regular room. afebrile Resp. failure, resolved -Critical care signed off -stable -Continue duonebs , O2 when necessary, 2 L when necessary. Not wearing most of the time now Anemia, post op bleeding -S/P PRBC, FFP transfusion -HH stable dropped today, 7.7 with symptoms of tachycardia Patient placed on telemetry. Will receive 2 units of blood today, active RBC Labs reviewed this a.m. hemoglobin stable Lactic acidosis, poss. sepsis, poss. PNA LLL consolidation -lactic acid, 2.3, trending down, monitor -continue empiric abx, Rocephin, Levaquin S/P elective right total hip arthroplasty, Intra-Op there was right femur fracture that required ORIF 11/20 -Post op care Pain management per orthopedic Placed back on anticoagulant per Dr. Buchanan on 11-24. Pharmacy to dose -SCDs for DVT prophylaxis, anticoagulation when ok per ortho Currently PT INR 2.5. Coumadin therapy. Monitor for any bleeding -PT eval per ortho orders, NWB, out of bed per PT. Tolerating fairly well History of CVA, hold anticoagulation for now Monitor History of A. fib, currently sinus rhythm Continuous cardiac telemetry Rhythm tachycardic this a.m. we'll monitor Protonix for GI prophylaxis SCDs for DVT prophylaxis Physical therapy following for strengthening,OOB, ADLs, Patient is to have right leg splint at all times. She can be out of the bed nonweightbearing right leg Discharge plan today for SNF, rehabilitation. At [facility] She vital signs and labs are stable. Coumadin level therapeutic at 2.5. D/W Dr. Dominguez, discussed D/W pt, Discharge Planning [facility]. SNF rehab Discussed With: Nurse, Family (patient), Other (Alberto, seen on her behalf) Cee Rowland Nov 29, 2016 12:52
== END 2016-11-29 14:22 | DRG 469 ==
LOC: HSDI 11-20 10:34 → N03A 11-20 23:18 → N06B 11-22 14:44
PROVIDERS: ADMIT Orthopaedic Surgery; ATTEND Orthopaedic Surgery
PROC: 0QS804Z Reposition Right Femoral Shaft with Internal Fixation Device, Open Approach (ICD-10-PCS; 2016-11-20)
PROC: 30233K1 Transfusion of Nonautologous Frozen Plasma into Peripheral Vein, Percutaneous Approach (ICD-10-PCS; 2016-11-20)
PROC: 30233N1 Transfusion of Nonautologous Red Blood Cells into Peripheral Vein, Percutaneous Approach (ICD-10-PCS; 2016-11-20)
PROC: 30233R1 Transfusion of Nonautologous Platelets into Peripheral Vein, Percutaneous Approach (ICD-10-PCS; 2016-11-20)
PROC: 5A1935Z Respiratory Ventilation, Less than 24 Consecutive Hours (ICD-10-PCS; 2016-11-20)
PROC: 0SR90JA Replacement of Right Hip Joint with Synthetic Substitute, Uncemented, Open Approach (ICD-10-PCS; principal; 2016-11-20 14:02)
DX: M16.11 Unilateral primary osteoarthritis, right hip (principal); D65 Disseminated intravascular coagulation [defibrination syndrome]; J96.00 Acute respiratory failure, unspecified whether with hypoxia or hypercapnia; R57.1 Hypovolemic shock; A41.9 Sepsis, unspecified organism; J18.9 Pneumonia, unspecified organism; I48.91 Unspecified atrial fibrillation; E87.2 Acidosis; D62 Acute posthemorrhagic anemia; M96.661 Fracture of femur following insertion of orthopedic implant, joint prosthesis, or bone plate, right leg; I69.351 Hemiplegia and hemiparesis following cerebral infarction affecting right dominant side; G25.81 Restless legs syndrome; E83.51 Hypocalcemia; G47.00 Insomnia, unspecified; K21.9 Gastro-esophageal reflux disease without esophagitis; R73.9 Hyperglycemia, unspecified; R23.8 Other skin changes; Y83.1 Surgical operation with implant of artificial internal device as the cause of abnormal reaction of the patient, or of later complication, without mention of misadventure at the time of the procedure; Z79.01 Long term (current) use of anticoagulants; Z87.891 Personal history of nicotine dependence; Z88.5 Allergy status to narcotic agent; Z23 Encounter for immunization
CPT/HCPCS: 36430; 36600; 71010; 73552; 76000; 76937; 80048; 82272; 82805; 83605; 83735; 84100; 84155; 85014; 85018; 85025; 85027; 85379; 85384; 85610; 85730; 86850; 86890; 86900; 86901; 86920; 86927; 86965; 87641; 90471; 90472; 90686; 90732; 94002; 94003; 94150; C1713; C1776; C9113; G0008; G0009; J0131; J0171; J0690; J0696; J1580; J1815; J1940; J1956; J2250; J2370; J2405; J2710; J3010; J3475; J3480; J7040; J7120; L1830; P9016; P9017; P9035; Q0169; Q2038